=== PATIENT | female | born 1965 | race Caucasian/White ===

== ENCOUNTER → 2018-11-25 | Outpatient (CLI) | payer OTHER ==
--- NOTE | 2018-11-25 17:07 | US ---
EXAMINATION TYPE: US venous doppler duplex LE LT DATE OF EXAM: 11/25/2018 4:53 PM COMPARISON: NONE CLINICAL HISTORY: M79.652 Pain in left thigh, M79.662 Pain in left. SIDE PERFORMED: Left TECHNIQUE: The lower extremity deep venous system is examined utilizing real time linear array sonog jimbo with graded compression, doppler sonography and color-flow sonography. VESSELS IMAGED: External Iliac Vein (EIV) Common Femoral Vein Deep Femoral Vein Greater Saphenous Vein * Femoral Vein Popliteal Vein Small Saphenous Vein * Proximal Calf Veins (* superficial vessels) Left Leg: Negative for DVT IMPRESSION: No evidence of deep venous thrombosis in the left leg.
--- NOTE | 2018-11-26 08:25 | XR ---
EXAMINATION TYPE: XR femur LT DATE OF EXAM: 11/25/2018 COMPARISON: NONE HISTORY: Pain TECHNIQUE: 4 views are submitted. FINDINGS: Mild concentric narrowing of the hip joint. Femurs intact. Moderate changes of osteoarthrit is of the knee. No acute fracture or dislocation. IMPRESSION: Arthritic changes.
--- NOTE | 2018-11-26 08:27 | XR ---
EXAMINATION TYPE: XR tibia fibula LT DATE OF EXAM: 11/25/2018 COMPARISON: NONE HISTORY: Pain TECHNIQUE: Two views are submitted. FINDINGS: The osseous structures are intact. Osteoarthritic changes of the knee joint noted. No erosive changes . Soft tissue calcification noted.. IMPRESSION: 1. No acute osseous abnormality.
--- NOTE | 2018-11-26 08:27 | XR ---
EXAMINATION TYPE: XR Hip Complete LT DATE OF EXAM: 11/25/2018 COMPARISON: NONE HISTORY: Pain TECHNIQUE: 2 views submitted FINDINGS: There is no evidence of erosive change or acute fracture. There is a deformity involving the lateral margin of the superior pubic ramus which appears chronic. Concentric narrowing of the hip joint noted with hypertrophic change of the acetabulum seen with femo ral acetabular impingement. A tiny sclerotic density within the left femoral neck correlate clinicall y to bone. IMPRESSION: 1. No evidence of acute fracture or dislocation. Chronic deformity of the left superior pubic rami estrada ggest previous trauma. Correlate with bone scan as clinically warranted.
--- NOTE | 2018-11-26 08:31 | XR ---
EXAM TYPE: LUMBAR SPINE X RAY SERIES COMPARISON: NONE HISTORY: Pain TECHNIQUE: 4 views are submitted. FINDINGS: Alignment is anatomic. The pedicles are intact. The transverse processes are intact. There is no s pondylolysis or spondylolisthesis. There is multilevel moderate degenerative disc disease. Facet art hropathy lower lumbar spine. IMPRESSION: 1. Multilevel degenerative disc disease.
== END | disposition home or self-care (01) ==
LOC: RADUSWWP 16:31
PROVIDERS: ATTEND Family Medicine
DX: M51.36 Other intervertebral disc degeneration, lumbar region (principal); M95.5 Acquired deformity of pelvis; M17.12 Unilateral primary osteoarthritis, left knee; Z91.81 History of falling; M79.662 Pain in left lower leg
CPT/HCPCS: 72110; 73502

== ENCOUNTER → 2018-12-31 | Outpatient (CLI) | payer OTHER ==
--- NOTE | 2018-12-31 15:09 | NM ---
EXAMINATION TYPE: NM bone/joint limited DATE OF EXAM: 12/31/2018 COMPARISON: X-ray 11/25/2018 HISTORY: Pain TECHNIQUE: After the intravenous administration of 23.7 mCi Tc 99m MDP. Images acquired 4 hours pos t injection. Multiple views of pelvis and bilateral hip are submitted. FINDINGS: There is abnormal uptake at L5 on the left likely degenerative. There is symmetric uptake involving t he femur bilaterally. Symmetric uptake involving the pubic rami has a normal appearance. There is no evidence to suggest a acute fracture. IMPRESSION: 1. Moderate intensity uptake L5 on the left likely degenerative. 2. Pubic rami and pelvic bones have a symmetric appearance with no suspicious reduced or increased up take.
== END | disposition home or self-care (01) ==
LOC: RADNMMAIN 09:54
PROVIDERS: ATTEND Family Medicine
DX: R93.7 Abnormal findings on diagnostic imaging of other parts of musculoskeletal system (principal); M25.552 Pain in left hip
CPT/HCPCS: 78300; A9503

== ENCOUNTER → 2019-01-04 | Outpatient (CLI) | payer OTHER ==
--- NOTE | 2019-01-06 13:25 | MM ---
Reason for exam: screening (asymptomatic). Last mammogram was performed 13 years and 7 months ago. History: Patient is postmenopausal. Benign cyst aspiration of the left breast, January 29, 2004. Benign ultrasound-guided cyst aspiration of the left breast, January 29, 2004. Cyst aspiration of the left breast. Physical Findings: A clinical breast exam by your physician is recommended on an annual basis and results should be correlated with mammographic findings. MG Screening Mammo w CAD Bilateral CC and MLO view(s) were taken. Prior study comparison: May 30, 2005, bilateral screening mammogram w/CAD. January 11, 2004, bilateral special view mammogram. The breast tissue is extremely dense which could obscure a lesion on mammography. Nodularity on right and left breast. ASSESSMENT: Probably benign, BI-RAD 3 RECOMMENDATION: Follow-up diagnostic mammogram of both breasts in 6 months. (3D)
== END | disposition home or self-care (01) ==
LOC: RADMAMWWP 14:14
PROVIDERS: ATTEND Family Medicine
DX: Z12.31 Encounter for screening mammogram for malignant neoplasm of breast (principal)
CPT/HCPCS: 77067

== ENCOUNTER → 2019-08-24 | Outpatient (CLI) | payer OTHER ==
--- NOTE | 2019-08-24 08:46 | US ---
EXAMINATION TYPE: US groin RT DATE OF EXAM: 08/24/2019 COMPARISON: NONE CLINICAL HISTORY: R19.09 Other intra-abdominal and pelvic swelling, r/o hernia TECHNIQUE/FINDINGS: Targeted grayscale and color ultrasound was performed of the patient's right groi n lump/palpable abnormality. Imaging with and without Valsalva was performed. Patient could not palpate area on today's ultrasound. Right groin scanned at patients area of discomfort scanned, unable to identify a hernia at this time. IMPRESSION: The previous palpable abnormality was not palpable to the patient today during imaging. No cystic or solid masses seen within the right groin. No hernia defect seen utilizing Valsalva durin g imaging.
== END | disposition home or self-care (01) ==
LOC: RADUSWWP 07:59
PROVIDERS: ATTEND Family Medicine
DX: R19.09 Other intra-abdominal and pelvic swelling, mass and lump (principal)

== ENCOUNTER → 2019-11-09 | Outpatient (CLI) | payer OTHER ==
--- NOTE | 2019-11-10 08:19 | MM ---
Reason for exam: follow-up at short interval from prior study. Last mammogram was performed 10 months ago. History: Patient is postmenopausal. Benign cyst aspiration of the left breast, January 29, 2004. Benign ultrasound-guided cyst aspiration of the left breast, January 29, 2004. Cyst aspiration of the left breast. Physical Findings: Nurse did not find any significant physical abnormalities on exam. MG Diagnostic Mammo w CAD RONA Bilateral CC, MLO, and XCCL view(s) were taken. Prior study comparison: January 04, 2019, bilateral MG screening mammo w CAD. May 30, 2005, bilateral screening mammogram w/CAD. The breast tissue is heterogeneously dense. This may lower the sensitivity of mammography. There are two low density oval masses of the right upper inner quadrant similar to 01/04/19. Ultrasound will be performed. The previously seen left lateral asymmetry is no longer present. Benign appearing bilateral calcifications. No suspicious abnormality on the left breast. These results were verbally communicated with the patient and result sheet given to the patient on 11/09/19. ASSESSMENT: Incomplete: need additional imaging evaluation, BI-RAD 0 RECOMMENDATION: Ultrasound of the right breast. (upper inner quadrant)
--- NOTE | 2019-11-10 08:20 | USB ---
Reason for exam: additional evaluation requested from abnormal screening. History: Patient is postmenopausal. Benign cyst aspiration of the left breast, January 29, 2004. Benign ultrasound-guided cyst aspiration of the left breast, January 29, 2004. Cyst aspiration of the left breast. US Breast Limited RT Technologist: Yajaira Kulkarni Right limited breast ultrasound including focal area of concern, retroareolar and axilla demonstrates a 0.7 x 1.0 x 0.4cm oval, cystic lesion at 12 o'clock and duct ectasia at the nipple. These results were verbally communicated with the patient and result sheet given to the patient on 11/09/19. ASSESSMENT: Benign, BI-RAD 2 RECOMMENDATION: Return to routine screening mammogram schedule for both breasts.
== END | disposition home or self-care (01) ==
LOC: RADMAMWWP 13:38
PROVIDERS: ATTEND Family Medicine
DX: R92.8 Other abnormal and inconclusive findings on diagnostic imaging of breast (principal)
CPT/HCPCS: 77066

== ENCOUNTER 2020-03-30 07:03 | Day surgery (SDC) | payer OTHER ==
[2020-03-28 13:10] VITALS: BMI 25.0
[~2020-03-30 07:03] MED LIST: LACTATED RINGERS 1,000 ML IV SCH; LIDOCAINE 1% (10MG/ML) FOR IV START INTRADERMA PRN
[2020-03-30 07:37] VITALS: RESP 16; TEMP 97.4
[2020-03-30] MEDS ORDERED: LIDOCAINE 1% INJ 10MG/ML (20 ML MDV) ONE (08:08)
[2020-03-30] MEDS ORDERED: PROPOFOL 10 MG/ML 20 ML VIAL IV ONE (08:08)
--- NOTE | 2020-03-30 08:29 | P.PCN ---
Date of Procedure: 03/30/20 Procedure(s) Performed: BRIEF HISTORY: Patient is a 54-year-old pleasant white female scheduled for an elective colonoscopy as a part of screening for colorectal neoplasia. She does have family history of colon cancer in her paternal grandmother and maternal grandfather in the 60s and 70s respectively. Her last colonoscopy was 5 years ago and was normal. PROCEDURE PERFORMED: Colonoscopy. PREOPERATIVE DIAGNOSIS: Screening for colon cancer/family history of colon cancer. IV sedation per Anesthesia. PROCEDURE: After informed consent was obtained, the patient, was brought into the endoscopy unit. IV sedation was administered by Anesthesia under continuous monitoring. Digital rectal examination was normal. Initially the Olympus CF-160 flexible video colonoscope was then inserted in the rectum, gradually advanced into the cecum without any difficulty. Careful examination was performed as the scope was gradually being withdrawn. Ileocecal valve and the appendiceal orifice were visualized and appeared normal. Prep was excellent. Mucosa of the cecum, ascending colon, transverse colon, descending colon, sigmoid colon, and rectum appeared normal. Moderate sigmoid diverticulosis seen. Retroflexion was performed in the rectum and no lesions were seen. The patient tolerated the procedure well. IMPRESSION: Normal-appearing colon from rectum to cecum with no evidence of colorectal neoplasia . Moderate left-sided diverticulosis. RECOMMENDATIONS: Findings of this examination were discussed with the patient as well as a family. She was advised to have a repeat screening colonoscopy every 5 years because of the family history of colon cancer .
[2020-03-30 08:49] VITALS: BP 108/66; PULSE 63
== END 2020-03-30 09:18 | disposition home or self-care (01) ==
LOC: ORWHC2ENDO 07:03
PROVIDERS: ATTEND Internal Medicine Gastroenterology
DX: K57.30 Diverticulosis of large intestine without perforation or abscess without bleeding (principal); Z80.0 Family history of malignant neoplasm of digestive organs
CPT/HCPCS: 45378; J2001; J2704

== ENCOUNTER → 2020-05-16 | Outpatient (CLI) | payer OTHER ==
--- NOTE | 2020-05-16 17:55 | MR ---
MRI ABDOMEN WITHOUT CONTRAST, MRCP CLINICAL INDICATION: Disease of pancreas. TECHNIQUE: Multi planar, multi sequence imaging was performed. 3-D [id number] imaging was utili zed in order to study the biliary system. Maximum intensity projection images were reconstructed fro m the original data. No intravenous contrast administered. COMPARISON: [facility] CT abdomen pelvis 02/22/2020. FINDINGS: MRCP: The extrahepatic and intrahepatic bile ducts are normal in appearance. The common bile duct a t the level of the pancreatic head measures 6 mm in size. There is minimal smooth dilatation of the m ain pancreatic duct in the head and uncinate process measuring up to 5 mm, with no abrupt cut off or irregular contour. The gallbladder appears unremarkable. Abdomen: Small simple scattered hepatic cysts. 1.2 cm simple left renal cyst. The right kidney, splee n, adrenal glands, and pancreas are unremarkable on noncontrast examination. No focal abnormal restri cted diffusion of the pancreas. Colonic diverticulosis. IMPRESSIONS: Minimal smooth dilatation of the main pancreatic duct within the pancreatic head and uncinate process . No evidence of stricture, ductal irregularity, or mass effect.
== END | disposition home or self-care (01) ==
LOC: RADMRIMAIN 07:45
PROVIDERS: ATTEND Internal Medicine Gastroenterology
DX: K86.89 Other specified diseases of pancreas (principal)
CPT/HCPCS: 74181

== ENCOUNTER 2020-09-10 23:59 | Emergency (ER) | payer OTHER ==
[2020-09-11 00:09] VITALS: RESP 18
[2020-09-11 00:44] LABS: Basophils % (A) 0 %; Eosinophils # (A) 0.4 k/uL (0-0.7); Eosinophils % (A) 5 %; HCT 38.1 % (34.0-46.0); HGB 13.1 gm/dL (11.4-16.0); Lymphocytes # (A) 1.3 k/uL (1.0-4.8); Lymphocytes % (A) 16 %; MCH 31.9 pg (25.0-35.0); MCHC 34.3 g/dL (31.0-37.0); MCV 93.1 fL (80.0-100.0); Mean Platelet Volume 6.9; Monocytes # (A) 0.4 k/uL (0-1.0); Monocytes % (A) 5 %; Neutrophils # (A) 5.6 k/uL (1.3-7.7); Neutrophils % (A) 72 %; Platelet Count 205 k/uL (150-450); RBC 4.09 m/uL (3.80-5.40); RDW 12.9 % (11.5-15.5); WBC 7.8 k/uL (3.8-10.6)
[2020-09-11 00:56] LABS: Albumin 4.1 g/dL (3.5-5.0); Calcium 9.4 mg/dL (8.4-10.2); Potassium 3.9 mmol/L (3.5-5.1); Total Bilirubin 0.7 mg/dL (0.2-1.3); Total Protein 6.5 g/dL (6.3-8.2)
[2020-09-11 01:12] LABS: Appearance,Urine Clear (Clear); Bacteria,Urine Few /hpf; Bilirubin,Urine Negative (Negative); Blood,Urine Trace (Negative); Color,Urine Light Yellow; Glucose,Urine (UA) Negative (Negative); Ketones,Urine Negative (Negative); Leukocyte Esterase,Urine Moderate (Negative); Mucus,Urine Rare /hpf; Nitrite,Urine Positive (Negative); Protein,Urine Negative (Negative); RBC,Urine 1 /hpf (0-5); Specific Gravity,Urine 1.008 (1.001-1.035); Squamous Epithelial Cell,Urine 1 /hpf (0-4); Urobilinogen,Urine <2.0 mg/dL (<2.0); WBC,Urine 11 /hpf (0-5)
[2020-09-11] MEDS ORDERED: KETOROLAC 15 MG/ML 1 ML VIAL IVP STA (01:41)
[2020-09-11] MEDS ORDERED: MORPHINE SULFATE 4 MG/ML SYRINGE IVP STA (01:41)
--- NOTE | 2020-09-11 01:47 | ED ---
Abdominal Pain HPI - General Chief Complaint: Back Pain/Injury Stated Complaint: Back Pain Time Seen by Provider: 09/11/20 00:16 Source: patient, RN notes reviewed, old records reviewed Mode of arrival: ambulatory Limitations: no limitations - History of Present Illness Initial Comments: This is a 55-year-old female DF for evaluation she presents again today for evaluation regards to right flank pain right-sided abdominal pain. Patient has history of diverticulitis but has no pain in her left sided currently wears pain normally usually is. Patient otherwise has no problems. No fevers mild nausea no vomiting. She does admit to maybe some dysuria or decreased urinary output. No recent travel history or sick contacts no fevers. Patient denies cough or congestion. MD Complaint: abdominal pain, flank pain (Right-sided) -: days(s) Location: RLQ, suprapubic Radiation: suprapubic Migration to: suprapubic Severity: mild Severity scale (1-10): 3 Quality: aching Consistency: intermittent Improves With: nothing Worsens With: nothing Context: other (none) Associated Symptoms: nausea, dysuria Treatments Prior to Arrival: other (none) - Related Data Previous Rx's Medication Instructions Recorded Ciprofloxacin HCl [Cipro] 500 mg PO Q12HR #20 tablet 09/11/20 Allergies Allergy/AdvReac Type Severity Reaction Status Date / Time No Known Allergies Allergy Verified 09/11/20 00:09 Review of Systems ROS Statement: Those systems with pertinent positive or pertinent negative responses have been documented in the HPI. ROS Other: All systems not noted in ROS Statement are negative. Past Medical History Additional Past Medical History / Comment(s): diverticulosis AND DIVERTICULITIS. HAS ENLARGED PANCREAS. kidney stones History of Any Multi-Drug Resistant Organisms: None Reported Past Surgical History: Tubal Ligation Additional Past Surgical History / Comment(s): COLONOSCOPY Past Anesthesia/Blood Transfusion Reactions: No Reported Reaction Past Psychological History: No Psychological Hx Reported Smoking Status: Never smoker Past Alcohol Use History: Rare Past Drug Use History: None Reported - Past Family History Mother Family Medical History: No Reported History General Exam Limitations: no limitations General appearance: alert, in no apparent distress Head exam: Present: atraumatic, normocephalic, normal inspection Eye exam: Present: normal appearance, PERRL, EOMI. Absent: scleral icterus, conjunctival injection, periorbital swelling ENT exam: Present: normal exam, mucous membranes moist Neck exam: Present: normal inspection. Absent: tenderness, meningismus, lymp hadenopathy Respiratory exam: Present: normal lung sounds bilaterally. Absent: respiratory distress, wheezes, rales, rhonchi, stridor Cardiovascular Exam: Present: regular rate, normal rhythm, normal heart sounds. Absent: systolic murmur, diastolic murmur, rubs, gallop, clicks GI/Abdominal exam: Present: soft, normal bowel sounds. Absent: distended, tenderness, guarding, rebound, rigid Extremities exam: Present: normal inspection, full ROM, normal capillary refill. Absent: tenderness, pedal edema, joint swelling, calf tenderness Back exam: Present: normal inspection Neurological exam: Present: alert, oriented X3, CN II-XII intact Psychiatric exam: Present: normal affect, normal mood Skin exam: Present: warm, dry, intact, normal color. Absent: rash Course Vital Signs 09/11/20 09/11/20 00:07 02:45 Temperature 98.3 F 98.5 F Pulse Rate 79 72 Respiratory 18 18 Rate Blood Pressure 131/75 130/83 O2 Sat by Pulse 100 98 Oximetry - Reevaluation(s) Reevaluation #1: Medical record is reviewed Patient symptoms improved here in the ER Patient family informed of results, questions have been answered Patient feels good for discharge home is tolerating oral intake Medical Decision Making - Medical Decision Making 55 female DF for back pain. Patient states she has right flank pain, patient does have urinary tract infection, polynephritis CT is negative for kidney stone. Patient can be discharged home - Lab Data Result diagrams: 09/11/20 00:33 09/11/20 00:33 Lab Results 09/11/20 09/11/20 09/11/20 Range/Units 00:33 00:33 00:33 WBC 7.8 (3.8-10.6) k/uL RBC 4.09 (3.80-5.40) m/uL Hgb 13.1 (11.4-16.0) gm/dL Hct 38.1 (34.0-46.0) % MCV 93.1 (80.0-100.0) fL MCH 31.9 (25.0-35.0) pg MCHC 34.3 (31.0-37.0) g/dL RDW 12.9 (11.5-15.5) % Plt Count 205 (150-450) k/uL MPV 6.9 Neutrophils % 72 % Lymphocytes % 16 % Monocytes % 5 % Eosinophils % 5 % Basophils % 0 % Neutrophils # 5.6 (1.3-7.7) k/uL Lymphocytes # 1.3 (1.0-4.8) k/uL Monocytes # 0.4 (0-1.0) k/uL Eosinophils # 0.4 (0-0.7) k/uL Basophils # 0.0 (0-0.2) k/uL Sodium 137 (137-145) mmol/L Potassium 3.9 (3.5-5.1) mmol/L Chloride 106 (98-107) mmol/L Carbon Dioxide 25 (22-30) mmol/L Anion Gap 6 mmol/L BUN 24 H (7-17) mg/dL Creatinine 0.85 (0.52-1.04) mg/dL Est GFR (CKD-EPI)AfAm 89 (>60 ml/min/1.73 sqM) Est GFR (CKD-EPI)NonAf 77 (>60 ml/min/1.73 sqM) Glucose 121 H (74-99) mg/dL Calcium 9.4 (8.4-10.2) mg/dL Total Bilirubin 0.7 (0.2-1.3) mg/dL AST 26 (14-36) U/L ALT 25 (4-34) U/L Alkaline Phosphatase 66 (38-126) U/L Total Protein 6.5 (6.3-8.2) g/dL Albumin 4.1 (3.5-5.0) g/dL Urine Color Light Yellow Urine Appearance Clear (Clear) Urine pH 6.0 (5.0-8.0) Ur Specific [place] 1.008 (1.001-1.035) Urine Protein Negative (Negative) Urine Glucose (UA) Negative (Negative) Urine Ketones Negative (Negative) Urine Blood Trace H (Negative) Urine Nitrite Positive H (Negative) Urine Bilirubin Negative (Negative) Urine Urobilinogen <2.0 (<2.0) mg/dL Ur Leukocyte Esterase Moderate H (Negative) Urine RBC 1 (0-5) /hpf Urine WBC 11 H (0-5) /hpf Urine WBC Clumps Rare H (None) /hpf Ur Squamous Epith Cells 1 (0-4) /hpf Urine Bacteria Few H (None) /hpf Urine Mucus Rare H (None) /hpf - Radiology Data Radiology results: report reviewed (CT shows may be developing diverticulosis), image reviewed Disposition Clinical Impression: Acute pyelonephritis Disposition: HOME SELF-CARE Condition: Good Instructions (If sedation given, give patient instructions): Kidney Infection (ED) Prescriptions: Ciprofloxacin HCl [Cipro] 500 mg PO Q12HR #20 tablet Is patient prescribed a controlled substance at d/c from ED?: No Referrals: Maddison Martinez MD [Primary Care Provider] - 1-2 days
--- NOTE | 2020-09-11 02:27 | CT ---
EXAM: CT Abdomen and Pelvis Without Intravenous Contrast CLINICAL HISTORY: ITS.REASON CT Reason: pain TECHNIQUE: Axial computed tomography images of the abdomen and pelvis without intravenous contrast. CTDI is 9.5 mGy and DLP is 484.7 mGy-cm. This CT exam was performed using one or more of the following dose reduction techniques: automated exposure control, adjustment of the mA and/or kV according to patient size, and/or use of iterative reconstruction technique. COMPARISON: 2011 FINDINGS: Lung bases: No mass. No consolidation. ABDOMEN: Liver: Unremarkable. Gallbladder and bile ducts: Unremarkable. Pancreas: No ductal dilation. Spleen: Unremarkable. Adrenals: Unremarkable. Kidneys and ureters: No obstructing stones. No hydronephrosis. Stomach and bowel: No bowel obstruction. No bowel wall thickening. Colonic diverticulosis with minimal fat stranding in the splenic flexure. PELVIS: Appendix: No evidence of appendicitis. Bladder: No stones. Reproductive: Unremarkable. ABDOMEN and PELVIS: Intraperitoneal space: Unremarkable. Bones/joints: No acute fractures. Soft tissues: Unremarkable. Vasculature: No abdominal aortic aneurysm. Lymph nodes: No enlarged lymph nodes. IMPRESSION: Colonic diverticulosis with minimal fat stranding in the splenic flexure. May represent early/mild diverticulosis.
[2020-09-11 02:48] VITALS: BP 130/83; PULSE 72; TEMP 98.5
== END 2020-09-11 02:48 | disposition home or self-care (01) ==
LOC: EC 23:59
DX: N10 Acute pyelonephritis (principal)
CPT/HCPCS: 36415; 80053; 85025; 81001; 87086; 74176; 99284; 96365; 96375; J2270; J0696; J1885

== ENCOUNTER → 2020-11-15 | Outpatient (CLI) | payer OTHER ==
--- NOTE | 2020-11-16 09:05 | MM ---
Reason for exam: screening (asymptomatic). Last mammogram was performed 1 year ago. History: Patient is postmenopausal. Benign cyst aspiration of the left breast, January 29, 2004. Benign ultrasound-guided cyst aspiration of the left breast, January 29, 2004. Cyst aspiration of the left breast. Physical Findings: A clinical breast exam by your physician is recommended on an annual basis and results should be correlated with mammographic findings. MG Screening Mammo w CAD Bilateral CC and MLO view(s) were taken. Prior study comparison: November 09, 2019, bilateral MG diagnostic mammo w CAD RONA. January 04, 2019, bilateral MG screening mammo w CAD. The breast tissue is heterogeneously dense. This may lower the sensitivity of mammography. There is chronic nodularity bilaterally. No significant changes when compared with prior studies. ASSESSMENT: Benign, BI-RAD 2 RECOMMENDATION: Routine screening mammogram of both breasts in 1 year.
== END | disposition home or self-care (01) ==
LOC: RADMAMWWP 12:44
PROVIDERS: ATTEND Family Medicine
DX: Z12.31 Encounter for screening mammogram for malignant neoplasm of breast (principal); Z98.890 Other specified postprocedural states
CPT/HCPCS: 77067

== ENCOUNTER → 2020-11-21 | Outpatient (CLI) | payer OTHER ==
--- NOTE | 2020-11-21 15:14 | XR ---
EXAMINATION TYPE: XR cervical spine comp DATE OF EXAM: 11/21/2020 COMPARISON: NONE HISTORY: Pain TECHNIQUE: Four views are submitted. FINDINGS: The odontoid is intact. There are no compression deformities. The prevertebral soft tissue structur es are within normal limits. Posterior cervical spondylosis C4-5 and C5-C6 and to a lesser extent C6 -C7 with moderate to severe degenerative disc disease and hypertrophic spurring anteriorly. IMPRESSION: 1. Multilevel moderate to severe degenerative disc disease and hypertrophic spurring..
== END | disposition home or self-care (01) ==
LOC: RADXRMAIN 14:48
PROVIDERS: ATTEND Family Medicine
DX: M50.30 Other cervical disc degeneration, unspecified cervical region (principal)
CPT/HCPCS: 72050

== ENCOUNTER → 2020-11-30 | Outpatient (CLI) | payer OTHER ==
--- NOTE | 2020-12-03 03:57 | US ---
EXAMINATION TYPE: US pelvis complete transvag DATE OF EXAM: 11/30/2020 COMPARISON: NONE CLINICAL HISTORY: 55-year-old female URINARY URGENCY, R39.15. TECHNIQUE: Transvaginal (TV) and Transabdominal (TA) . Transabdominal sonographic images of the pel vis were acquired. Transvaginal sonographic images were medically necessary to better assess the fol lowing anatomy: OVARIES Date of LMP: post menopausal, no HRT. FINDINGS: EXAM MEASUREMENTS: Uterus: 7.7 x 3.5 x 4.6 cm Endometrial Stripe: 0.3 cm Right Ovary: 2.2 x 1.7 x 1.7 cm for a volume of 2.2 mL. Left Ovary: 1.6 x 1.7 x 1.7 cm for volume of 2.4 mL. 1. Uterus: Anteverted and otherwise wnl. Tiny 3 mm cervical nabothian cyst. 2. Endometrium: wnl 3. Right Ovary: wnl 4. Left Ovary: wnl 5. Bilateral Adnexa: wnl 6. Posterior cul-de-sac: no free fluid IMPRESSION: Thin endometrial stripe at 3 mm and small postmenopausal ovaries. No pelvic free fluid.
--- NOTE | 2020-12-03 04:02 | US ---
EXAMINATION TYPE: US abdomen complete DATE OF EXAM: 11/30/2020 COMPARISON: CT 02/22/2020 CLINICAL HISTORY: 55-year-old female R39.15 Urine urgency, R32 Urinary incontinence. TECHNIQUE: Multiple sonographic images of the abdomen are obtained. FINDINGS: EXAM MEASUREMENTS: Liver Length: 13.8 cm Gallbladder Wall: 0.3 cm CBD: 6.4 mm Spleen: 10.6 cm Right Kidney: 10.9 x 3.7 x 4.2 cm Left Kidney: 11.6 x 5.1 x 4.9 cm Pancreas: visualized portions wnl. Suboptimal visualization of the pancreatic tail due to shadowing from bowel gas. Portions of the pancreatic body are also obscured. Liver: wnl Gallbladder: No stones seen Evidence for sonographic Acosta's sign: No CBD: Borderline to mildly dilated. Spleen: wnl Kidneys: No hydronephrosis. Upper IVC: wnl Abd Aorta: Measures up to 2.2 cm, within normal limits. IMPRESSION: 1. The bile duct is borderline to mildly dilated at 6.4 mm. This may be acceptable given patient's ag e. Correlate for normal alkaline phosphatase and bilirubin levels. 2. Limited visualization of portions of the pancreas. No gallstones or other specific sonographic abn ormality of the abdomen.
== END | disposition home or self-care (01) ==
LOC: RADUSWWP 14:52
PROVIDERS: ATTEND Family Medicine
DX: R39.15 Urgency of urination (principal); R32 Unspecified urinary incontinence; K83.8 Other specified diseases of biliary tract; Z78.0 Asymptomatic menopausal state
CPT/HCPCS: 76700; 76830; 76856

== ENCOUNTER → 2021-02-17 | Outpatient (CLI) | payer OTHER ==
--- NOTE | 2021-02-17 15:38 | MR ---
EXAMINATION TYPE: MR cervical spine wo con DATE OF EXAM: 02/17/2021 COMPARISON: Plain film 2020 HISTORY: NO prior, DDD, spasms, arthritis, no trauma TECHNIQUE: Multiplanar, multisequence images of the cervical spine were acquired. C2-C3: No evidence for degenerative disc disease. No disc bulge/herniation or protrusion. No Canal stenosis. Foramina are patent bilaterally. C3-C4: No evidence for degenerative disc disease. No disc bulge/herniation or protrusion. No Canal stenosis. Foramina are patent bilaterally. C4-C5: Posterior extension endplate disc complex causes mild anterior mass effect on the thecal sac. Uncovertebral joint hypertrophy results in bilateral foraminal encroachment. C5-C6: Bilateral foraminal encroachment is present due to uncovertebral joint hypertrophy greater on the right than on the left, minimal posterior disc bulge effaces the anterior thecal sac. C6-C7: No evidence for degenerative disc disease. No disc bulge/herniation or protrusion. No Canal stenosis. Foramina are patent bilaterally. C7-T1: No evidence for degenerative disc disease. No disc bulge/herniation or protrusion. No Canal stenosis. Foramina are patent bilaterally. Cervical segments are intact. There is normal alignment. Cervical spinal cord is of normal signal. Craniovertebral junction relationships are within normal limits. There is no significant spinal trey nosis. There is multilevel spondylosis with endplate discogenic signal change, loss of disc height si gnal especially at C4-5, C5-6. There is multilevel facet arthropathy. IMPRESSION: Degenerative disc disease and facet arthropathy, foraminal encroachment
== END | disposition home or self-care (01) ==
LOC: RADMRIMAIN 07:58
PROVIDERS: ATTEND Family Medicine
DX: M50.30 Other cervical disc degeneration, unspecified cervical region (principal); M47.892 Other spondylosis, cervical region; M50.90 Cervical disc disorder, unspecified, unspecified cervical region
CPT/HCPCS: 72141

== ENCOUNTER 2022-02-01 12:07 | Emergency (ER) | payer OTHER ==
[2022-02-01] MEDS ORDERED: KETOROLAC 15 MG/ML 1 ML VIAL IVP STA (13:08)
[2022-02-01] MEDS ORDERED: SODIUM CHLORIDE 0.9% 1,000 ML IV STA (13:08)
--- NOTE | 2022-02-01 13:13 | ED ---
Abdominal Pain HPI - General Chief Complaint: Abdominal Pain Stated Complaint: Abdominal pain Time Seen by Provider: 02/01/22 12:56 Source: patient, RN notes reviewed Mode of arrival: ambulatory Limitations: no limitations - History of Present Illness Initial Comments: This is a 56-year-old female who presents to the emergency department for epigastric pain. Patient states that for the last 5 days, she has had random episodes throughout the day where she gets a feeling of cramping/contractions in the upper abdomen. States that this feels like it is coming from the back to the front of the abdomen. Symptoms occur in waves. States that it is worse after she drinks something cold or eats. Denies any associated fevers, nausea, or vomiting. She does not believe that she has had anything like this in the past. Denies any fevers, chills, sore throat, cough, dyspnea, chest pain, palpitations, nausea, vomiting, diarrhea, back pain, or headaches. MD Complaint: abdominal pain Onset/Timin -: days(s) Location: RUQ, epigastric Quality: cramping Consistency: colicky Worsens With: eating - Related Data Previous Rx's Medication Instructions Recorded Ciprofloxacin HCl [Cipro] 500 mg PO Q12HR #20 tablet 09/11/20 Hyoscyamine Sulfate [Levsin] 0.125 mg PO Q4H PRN #30 tab 02/01/22 Omeprazole 20 mg PO QAM 14 Days #14 cap 02/01/22 Allergies Allergy/AdvReac Type Severity Reaction Status Date / Time No Known Allergies Allergy Verified 09/11/20 00:09 Review of Systems ROS Statement: Those systems with pertinent positive or pertinent negative responses have been documented in the HPI. ROS Other: All systems not noted in ROS Statement are negative. Past Medical History Additional Past Medical History / Comment(s): diverticulosis AND DIVERTICULITIS. HAS ENLARGED PANCREAS. kidney stones History of Any Multi-Drug Resistant Organisms: None Reported Past Surgical History: Tubal Ligation Additional Past Surgical History / Comment(s): COLONOSCOPY Past Anesthesia/Blood Transfusion Reactions: No Reported Reaction Past Psychological History: No Psychological Hx Reported Smoking Status: Never smoker Past Alcohol Use History: Rare Past Drug Use History: None Reported - Past Family History Mother Family Medical History: No Reported History General Exam Limitations: no limitations General appearance: alert, in distress Head exam: Present: atraumatic, normocephalic, normal inspection Respiratory exam: Present: normal lung sounds bilaterally. Absent: respiratory distress, wheezes, rales, rhonchi, stridor Cardiovascular Exam: Present: regular rate, normal rhythm, normal heart sounds. Absent: systolic murmur, diastolic murmur, rubs, gallop, clicks GI/Abdominal exam: Present: soft, tenderness (RUQ), normal bowel sounds. Ab sent: distended, guarding, rebound, rigid Neurological exam: Present: alert, oriented X3, CN II-XII intact Psychiatric exam: Present: normal affect, normal mood Skin exam: Present: warm, dry, intact, normal color. Absent: rash Course Vital Signs 02/01/22 02/01/22 12:14 16:59 Temperature 97.9 F 98.2 F Pulse Rate 81 78 Respiratory 16 18 Rate Blood Pressure 157/76 150/70 O2 Sat by Pulse 100 78 L Oximetry Medical Decision Making - Medical Decision Making This is a 56-year-old female who presents to the emergency department with abdominal pain. Lab work and ultrasound of the gallbladder were obtained. Lab work was nonactionable. The gallbladder ultrasound revealed no significant acute changes. Discussed with the patient that at this time no cause of her symptoms has been identified. Patient requests further workup with a computed tomography scan. Discussed the risks and benefits of a CT scan and the radiation exposure, and that her workup at this time does not suggest an acute infectious process. Patient wishes to proceed. CT the abdomen and pelvis was obtained, this again revealed no significant acute changes to explain her symptoms. It did note a possible developing colitis, however this is not in the area where the patient's pain is located, and she states that this is different from episodes of diverticulitis she has had in the past. We did try a GI cocktail, and patient states that this did calm down her symptoms. Discussed that this may be in part related to a gastric ulcer. Prescription for Levsin and omeprazole provided. Instructed her to follow-up with her primary care provider this week for reevaluation of symptoms. Return precautions reviewed in depth, the patient is instructed to return to the emergency department with any new, worsening, or concerning symptoms. Patient verbalized understanding. This case was discussed in detail with the attending ED physician. Presentation, findings, and treatment plan discussed in detail as well. - Lab Data Result diagrams: 02/01/22 13:22 02/01/22 13:22 Lab Results 02/01/22 02/01/22 02/01/22 Range/Units 13: 13: 13:22 WBC 8.1 (3.8-10.6) k/uL RBC 4.49 (3.80-5.40) m/uL Hgb 14.2 (11.4-16.0) gm/dL Hct 43.2 (34.0-46.0) % MCV 96.1 (80.0-100.0) fL MCH 31.6 (25.0-35.0) pg MCHC 32.9 (31.0-37.0) g/dL RDW 12.6 (11.5-15.5) % Plt Count 240 (150-450) k/uL MPV 7.4 Neutrophils % 73 % Lymphocytes % 17 % Monocytes % 6 % Eosinophils % 3 % Basophils % 1 % Neutrophils # 5.9 (1.3-7.7) k/uL Lymphocytes # 1.4 (1.0-4.8) k/uL Monocytes # 0.5 (0-1.0) k/uL Eosinophils # 0.2 (0-0.7) k/uL Basophils # 0.1 (0-0.2) k/uL Sodium 138 (137-145) mmol/L Potassium 4.1 (3.5-5.1) mmol/L Chloride 105 (98-107) mmol/L Carbon Dioxide 27 (22-30) mmol/L Anion Gap 6 mmol/L BUN 19 H (7-17) mg/dL Creatinine 0.85 (0.52-1.04) mg/dL Est GFR (CKD-EPI)AfAm 88 (>60 ml/min/1.73 sqM) Est GFR (CKD-EPI)NonAf 77 (>60 ml/min/1.73 sqM) Glucose 97 (74-99) mg/dL Calcium 8.8 (8.4-10.2) mg/dL Total Bilirubin 0.7 (0.2-1.3) mg/dL AST 16 (14-36) U/L ALT 15 (4-34) U/L Alkaline Phosphatase 60 (38-126) U/L Troponin I (0.000-0.034) ng/mL Total Protein 6.2 L (6.3-8.2) g/dL Albumin 4.0 (3.5-5.0) g/dL Amylase 50 (30-110) U/L Lipase 27 (23-300) U/L Urine Color Colorless Urine Appearance Clear (Clear) Urine pH 7.0 (5.0-8.0) Ur Specific [place] 1.005 (1.001-1.035) Urine Protein Negative (Negative) Urine Glucose (UA) Negative (Negative) Urine Ketones Negative (Negative) Urine Blood Negative (Negative) Urine Nitrite Negative (Negative) Urine Bilirubin Negative (Negative) Urine Urobilinogen <2.0 (<2.0) mg/dL Ur Leukocyte Esterase Small H (Negative) Urine RBC <1 (0-5) /hpf Urine WBC 8 H (0-5) /hpf Ur Squamous Epith Cells 1 (0-4) /hpf Urine Bacteria Rare H (None) /hpf 02/01/22 Range/Units 13:22 WBC (3.8-10.6) k/uL RBC (3.80-5.40) m/uL Hgb (11.4-16.0) gm/dL Hct (34.0-46.0) % MCV (80.0-100.0) fL MCH (25.0-35.0) pg MCHC (31.0-37.0) g/dL RDW (11.5-15.5) % Plt Count (150-450) k/uL MPV Neutrophils % % Lymphocytes % % Monocytes % % Eosinophils % % Basophils % % Neutrophils # (1.3-7.7) k/uL Lymphocytes # (1.0-4.8) k/uL Monocytes # (0-1.0) k/uL Eosinophils # (0-0.7) k/uL Basophils # (0-0.2) k/uL Sodium (137-145) mmol/L Potassium (3.5-5.1) mmol/L Chloride (98-107) mmol/L Carbon Dioxide (22-30) mmol/L Anion Gap mmol/L BUN (7-17) mg/dL Creatinine (0.52-1.04) mg/dL Est GFR (CKD-EPI)AfAm (>60 ml/min/1.73 sqM) Est GFR (CKD-EPI)NonAf (>60 ml/min/1.73 sqM) Glucose (74-99) mg/dL Calcium (8.4-10.2) mg/dL Total Bilirubin (0.2-1.3) mg/dL AST (14-36) U/L ALT (4-34) U/L Alkaline Phosphatase (38-126) U/L Troponin I <0.012 (0.000-0.034) ng/mL Total Protein (6.3-8.2) g/dL Albumin (3.5-5.0) g/dL Amylase (30-110) U/L Lipase (23-300) U/L Urine Color Urine Appearance (Clear) Urine pH (5.0-8.0) Ur Specific [place] (1.001-1.035) Urine Protein (Negative) Urine Glucose (UA) (Negative) Urine Ketones (Negative) Urine Blood (Negative) Urine Nitrite (Negative) Urine Bilirubin (Negative) Urine Urobilinogen (<2.0) mg/dL Ur Leukocyte Esterase (Negative) Urine RBC (0-5) /hpf Urine WBC (0-5) /hpf Ur Squamous Epith Cells (0-4) /hpf Urine Bacteria (None) /hpf - EKG Data EKG Comments: Sinus rhythm. Ventricular rate 61 bpm, W[place] interval 148 ms, QRS duration 81 ms, QTC 396 ms. - Radiology Data Radiology results: report reviewed, image reviewed Disposition Clinical Impression: Peptic ulcer Disposition: HOME SELF-CARE Instructions (If sedation given, give patient instructions): Peptic Ulcer (ED), Gastritis (ED) Additional Instructions: Return to the emergency department with any new, worsening, or concerning symptoms. Take the Levsin up to every 4 hours as needed for abdominal spasms. Take the Omeprazole 30 minutes before eating any meals daily for 2 weeks. Try taking [id number] antacids as well such as TUMS or Mylanta. Follow up with your primary care provider in 1-2 days. Prescriptions: Hyoscyamine Sulfate [Levsin] 0.125 mg PO Q4H PRN #30 tab PRN Reason: Spasms Omeprazole 20 mg PO QAM 14 Days #14 cap Is patient prescribed a controlled substance at d/c from ED?: No Referrals: Maddison Martinez MD [Primary Care Provider] - 1-2 days
[2022-02-01 13:42] LABS: Basophils # (A) 0.1 k/uL (0-0.2); Basophils % (A) 1 %; Eosinophils # (A) 0.2 k/uL (0-0.7); Eosinophils % (A) 3 %; HCT 43.2 % (34.0-46.0); HGB 14.2 gm/dL (11.4-16.0); Lymphocytes # (A) 1.4 k/uL (1.0-4.8); Lymphocytes % (A) 17 %; MCH 31.6 pg (25.0-35.0); MCHC 32.9 g/dL (31.0-37.0); MCV 96.1 fL (80.0-100.0); Mean Platelet Volume 7.4; Monocytes # (A) 0.5 k/uL (0-1.0); Monocytes % (A) 6 %; Neutrophils # (A) 5.9 k/uL (1.3-7.7); Neutrophils % (A) 73 %; Platelet Count 240 k/uL (150-450); RBC 4.49 m/uL (3.80-5.40); RDW 12.6 % (11.5-15.5); WBC 8.1 k/uL (3.8-10.6)
[2022-02-01 13:46] LABS: Calcium 8.8 mg/dL (8.4-10.2); Potassium 4.1 mmol/L (3.5-5.1); Total Bilirubin 0.7 mg/dL (0.2-1.3); Total Protein 6.2 g/dL (6.3-8.2)
[2022-02-01 13:54] LABS: Appearance,Urine Clear (Clear); Bacteria,Urine Rare /hpf; Bilirubin,Urine Negative (Negative); Blood,Urine Negative (Negative); Color,Urine Colorless; Glucose,Urine (UA) Negative (Negative); Ketones,Urine Negative (Negative); Leukocyte Esterase,Urine Small (Negative); Nitrite,Urine Negative (Negative); Protein,Urine Negative (Negative); RBC,Urine <1 /hpf (0-5); Specific Gravity,Urine 1.005 (1.001-1.035); Squamous Epithelial Cell,Urine 1 /hpf (0-4); Urobilinogen,Urine <2.0 mg/dL (<2.0); WBC,Urine 8 /hpf (0-5)
--- NOTE | 2022-02-01 14:06 | US ---
EXAMINATION TYPE: US gallbladder DATE OF EXAM: 02/01/2022 COMPARISON: 11/30/2020 CLINICAL HISTORY: 56-year-old female Epigastric and RUQ pain. Intermittent abdomen pain x couple days , patient not NPO TECHNIQUE: Multiple sonographic images of the right upper quadrant are obtained. FINDINGS: EXAM MEASUREMENTS: Liver Length: 15.2 cm Gallbladder Wall: 0.2 cm CBD: 6.7 mm (6.4 mm, previously) Right Kidney: 11.1 x 4.9 x 5.0 cm Pancreas: visualized portions wnl, duct measures upper limits of normal at 0 2 mm. The pancreatic ta il is limited by overlying midline bowel gas Liver: 1.0cm cyst adjacent to gallbladder Gallbladder: No abnormal distention, wall thickening, pericholecystic fluid, or shadowing calculi. Evidence for sonographic Acosta's sign: no CBD: Borderline dilated, not significantly changed. Right Kidney: wnl IMPRESSION: No gallstones. The bile duct is borderline dilated at 6.7 mm but not significantly changed from 2020. Likely chronic in this patient.
--- NOTE | 2022-02-01 15:22 | CT ---
EXAMINATION TYPE: CT abdomen pelvis w con CT DLP: 979.6 mGycm, Automated exposure control for dose reduction was used. DATE OF EXAM: 02/01/2022 2:44 PM COMPARISON: Gallbladder ultrasound 02/01/2022, CT abdomen pelvis 09/11/2020 CLINICAL INDICATION:Female, 56 years old with history of Epigastric pain; Epigastric pain. Hx enlarge d pancreas, diverticulitis/osis TECHNIQUE: Axial CT of the abdomen and pelvis. Sagittal and coronal reformats were created on a [employer] workstation. Contrast used:100 mL of Isovue 300 with IV Contrast, Oral contrast used: without Oral Contrast FINDINGS: LOWER CHEST: Unremarkable ABDOMEN LIVER: Multiple subcentimeter foci of hypoattenuation which are too small adequately characterize, st atistically representing small cyst. Noncirrhotic morphology. GALLBLADDER AND BILE DUCTS: Unremarkable. PANCREAS: Normal appearance of the parenchyma. The main pancreatic duct is fusiformly prominent at 4 mm in width (series 202, image 32). SPLEEN: Unremarkable. ADRENAL GLANDS: Unremarkable. KIDNEYS AND URETERS: No evidence of hydronephrosis or renal calculus. The ureters are unremarkable. PELVIS BLADDER: Unremarkable REPRODUCTIVE: Unremarkable. ABDOMEN & PELVIS STOMACH AND BOWEL: Stomach and duodenum are unremarkable. Segment of colonic wall thickening with sub tle pericolonic/peridiverticular fat stranding near the splenic flexure (series 202, image 52). No ev idence for wall fluid collections or pneumoperitoneum. No evidence of bowel obstruction. PERITONEUM: No evidence of pneumoperitoneum or free fluid. VASCULATURE: No evidence of aortic aneurysm. Pelvic phleboliths are noted. Scattered calcified athero sclerosis of the abdominal aorta and distal branches. MUSCULOSKELETAL: No acute osseous abnormalities. Mild disc degeneration changes are present throughou t the thoracolumbar spine. LYMPH NODES: No gross evidence for lymphadenopathy. SOFT TISSUE/ABDOMINAL WALL: Unremarkable IMPRESSION: 1. Chronic diverticulosis with mild inflammatory changes of the distal transverse/descending colon wh ich may represent early colitis. No acute complications seen. 2. Minimally prominent main pancreatic duct which is nonspecific and can be seen in the sequelae of p rior pancreatitis.
[2022-02-01] MEDS ORDERED: MAG HYDROX/AL HYDROX/SIMETH 30 ML, HYOSCYAMINE ELIXIR 10 ML PO STA ×2 (15:33)
[2022-02-01 17:00] VITALS: BP 150/70; PULSE 78; RESP 18; TEMP 98.2
== END 2022-02-01 16:59 | disposition home or self-care (01) ==
LOC: EC 12:07
DX: K27.9 Peptic ulcer, site unspecified, unspecified as acute or chronic, without hemorrhage or perforation (principal)
CPT/HCPCS: 36415; 93005; 80053; 82150; 83690; 84484; 85025; 81001; 76705; 74177; 99284; 96374; 96361; J1885; Q9967

== ENCOUNTER 2022-05-19 10:32 | Emergency (ER) | payer OTHER ==
[2022-05-19 10:55] VITALS: BP 129/76; PULSE 98; RESP 18; TEMP 98
--- NOTE | 2022-05-19 11:57 | ED ---
URI HPI - General Chief Complaint: Upper Respiratory Infection Stated Complaint: ear pain, dizziness Time Seen by Provider: 05/19/22 11:26 Source: patient, RN notes reviewed Mode of arrival: ambulatory Limitations: no limitations - History of Present Illness Initial Comments: Patient is a 56 year old female presenting to the ER with a chief complaint of ear pain/sweats. Patient states this started a couple of days ago with chills while at work. She also endorses sore throat with dry and productive cough. Patient denies fevers, nightsweats, tinnitus, congestion, chest pain/palpitations, shortness of breath, abdominal pain, diarrhea, constipation or dysuria. - Related Data Previous Rx's Medication Instructions Recorded Ciprofloxacin HCl [Cipro] 500 mg PO Q12HR #20 tablet 09/11/20 Hyoscyamine Sulfate [Levsin] 0.125 mg PO Q4H PRN #30 tab 02/01/22 Omeprazole 20 mg PO QAM 14 Days #14 cap 02/01/22 Pseudoephedrine 12Hr [Sudafed 12Hr] 120 mg PO Q12H #20 tab 05/19/22 Allergies Allergy/AdvReac Type Severity Reaction Status Date / Time No Known Allergies Allergy Verified 05/19/22 10:55 Review of Systems ROS Statement: Those systems with pertinent positive or pertinent negative responses have been documented in the HPI. ROS Other: All systems not noted in ROS Statement are negative. Past Medical History Additional Past Medical History / Comment(s): diverticulosis AND DIVERTICULITIS. HAS ENLARGED PANCREAS. kidney stones History of Any Multi-Drug Resistant Organisms: None Reported Past Surgical History: Tubal Ligation Additional Past Surgical History / Comment(s): COLONOSCOPY Past Anesthesia/Blood Transfusion Reactions: No Reported Reaction Past Psychological History: No Psychological Hx Reported Smoking Status: Never smoker Past Alcohol Use History: Rare Past Drug Use History: None Reported - Past Family History Mother Family Medical History: No Reported History General Exam Limitations: no limitations General appearance: alert, in no apparent distress Head exam: Present: atraumatic, normocephalic, normal inspection Eye exam: Present: normal appearance, PERRL, EOMI. Absent: scleral icterus, conjunctival injection, periorbital swelling ENT exam: Present: normal exam, mucous membranes moist, other (erythematous pharynx) Neck exam: Present: normal inspection. Absent: tenderness, meningismus, lymphadenopathy Respiratory exam: Present: normal lung sounds bilaterally. Absent: respiratory distress, wheezes, rales, rhonchi, stridor Cardiovascular Exam: Present: regular rate, normal rhythm, normal heart sounds. Absent: systolic murmur, diastolic murmur, rubs, gallop, clicks GI/Abdominal exam: Present: soft, normal bowel sounds. Absent: distended, tenderness, guarding, rebound, rigid Extremities exam: Present: normal inspection, full ROM, normal capillary refill. Absent: tenderness, pedal edema, joint swelling, calf tenderness Back exam: Present: normal inspection Neurological exam: Present: alert, oriented X3, CN II-XII intact Psychiatric exam: Present: normal affect, normal mood Skin exam: Present: warm, dry, intact, normal color. Absent: rash Course Vital Signs 05/19/22 10:52 Temperature 98 F Pulse Rate 98 Respiratory 18 Rate Blood Pressure 129/76 O2 Sat by Pulse 100 Oximetry Medical Decision Making - Medical Decision Making Patient is 56 year old femlae presenting to the ER with a cheif complaint of ear pain and chills. Influenza A & B and COVID tests were negative. Patient we treated for upper extremity infection. Patient stable otherwise return parameters were discussed. - Lab Data Lab Results 05/19/22 05/19/22 Range/Units 12:01 12:01 Coronavirus (PCR) Not Detected (Not Detectd) Influenza Type A RNA Not Detected (Not Detectd) Influenza Type B (PCR) Not Detected (Not Detectd) Disposition Clinical Impression: Acute upper respiratory infection Disposition: HOME SELF-CARE Condition: Stable Instructions (If sedation given, give patient instructions): Upper Respiratory Infection (ED) Additional Instructions: Please return to the Emergency Department if symptoms worsen or any other concerns. Prescriptions: Pseudoephedrine 12Hr [Sudafed 12Hr] 120 mg PO Q12H #20 tab Is patient prescribed a controlled substance at d/c from ED?: No Referrals: Maddison Martinez MD [Primary Care Provider] - 1-2 days Time of Disposition: 13:08
== END 2022-05-19 13:18 | disposition home or self-care (01) ==
LOC: EC 10:32
DX: J06.9 Acute upper respiratory infection, unspecified (principal); Z20.822 Contact with and (suspected) exposure to COVID-19
CPT/HCPCS: 87502; 87635; 99284

== ENCOUNTER 2022-11-08 22:48 | Emergency (ER) | payer OTHER ==
[2022-11-08 23:11] VITALS: TEMP 98
[2022-11-09 01:21] LABS: Basophils % (A) 0 %; Eosinophils % (A) 1 %; HCT 42.3 % (34.0-46.0); HGB 14.7 gm/dL (11.4-16.0); Lymphocytes # (A) 0.8 k/uL (1.0-4.8); Lymphocytes % (A) 9 %; MCH 32.2 pg (25.0-35.0); MCHC 34.7 g/dL (31.0-37.0); MCV 92.7 fL (80.0-100.0); Mean Platelet Volume 7.5; Monocytes # (A) 0.3 k/uL (0-1.0); Monocytes % (A) 4 %; Neutrophils % (A) 85 %; Platelet Count 230 k/uL (150-450); RBC 4.56 m/uL (3.80-5.40); WBC 8.2 k/uL (3.8-10.6)
[2022-11-09] MEDS ORDERED: SODIUM CHLORIDE 0.9% 1,000 ML IV ONE (01:24)
[2022-11-09] MEDS ORDERED: ONDANSETRON 4 MG/2 ML VIAL IVP STA (01:25)
[2022-11-09] MEDS ORDERED: MORPHINE SULFATE 4 MG/ML SYRINGE IVP STA (01:25)
[2022-11-09 01:35] LABS: Partial Thromboplastin Time 23.9 sec (22.0-30.0); Prothrombin Time 10.3 sec (9.0-12.0)
[2022-11-09 01:37] LABS: ALT 20 U/L (4-34); AST 22 U/L (14-36); African American GFR (CKD) >90 (>60 ml/min/1.73 sqM); Alkaline Phosphatase 66 U/L (38-126); Anion Gap 14 mmol/L; Blood Urea Nitrogen 15 mg/dL (7-17); Carbon Dioxide 23 mmol/L (22-30); Chloride 104 mmol/L (98-107); Glucose 139 mg/dL (74-99); Lipase 34 U/L (23-300); Non-African American GFR(CKD) >90 (>60 ml/min/1.73 sqM); Sodium 141 mmol/L (137-145); Total Bilirubin 1.2 mg/dL (0.2-1.3); Total Protein 7.5 g/dL (6.3-8.2)
--- NOTE | 2022-11-09 02:35 | CT ---
EXAM: CT Abdomen and Pelvis With Intravenous Contrast CLINICAL HISTORY: ITS.REASON CT Reason: abd pain, vomiting TECHNIQUE: Axial computed tomography images of the abdomen and pelvis with intravenous contrast. CTDI is 19 mGy and DLP is 926.2 mGy-cm. This CT exam was performed using one or more of the following dose reduction techniques: automated exposure control, adjustment of the mA and/or kV according to patient size, and/or use of iterative reconstruction technique. COMPARISON: 02/01/2022. FINDINGS: Lung bases: Scarring and subsegmental atelectasis noted at the lung bases. Heart: Heart is normal in size. Mediastinum: Possible mild distal esophagitis. ABDOMEN: Liver: Fatty liver. Probable simple hepatic cysts. Gallbladder and bile ducts: See below. Pancreas: See below. Spleen: Spleen enhances uniformly. Adrenals: The adrenal glands, the head, body, tail of the pancreas and the gallbladder is unremarkable. Kidneys and ureters: 1 cm simple cyst midpole region of the left kidney. No follow up is advised. No renal calculus or hydronephrosis. Stomach and bowel: Findings suggestive of enterocolitis. Moderate quantity of ingested material in the stomach. Flow is noted within the colon. Diverticulosis. No bowel obstruction. PELVIS: Appendix: Appendix is seen on coronal image 31 and is unremarkable. Bladder: Bladder is underdistended. Reproductive: Unremarkable as visualized. ABDOMEN and PELVIS: Intraperitoneal space: Unremarkable. No free air. No significant fluid collection. Bones/joints: Bone islands about the proximal left femur. No acute fracture. No dislocation. No spondylolysis. Soft tissues: Ischiorectal fat is clean. Vasculature: Portal vein is patent. Flow is noted within the celiac, SMA, the renal arteries, and DIVINE. Atherosclerotic disease of the abdominal aorta without change in caliber. No abdominal aortic aneurysm. Lymph nodes: Unremarkable. No enlarged lymph nodes. IMPRESSION: 1. Consider enterocolitis. 2. The appendix is unremarkable. 3. Possible mild distal esophagitis. 4. Fatty liver. 5. The gallbladder is unremarkable. 6. No hydronephrosis.
[2022-11-09 03:56] LABS: Appearance,Urine Clear (Clear); Bilirubin,Urine Negative (Negative); Blood,Urine Trace (Negative); Color,Urine Light Yellow; Glucose,Urine (UA) Negative (Negative); Ketones,Urine 2+ (Negative); Leukocyte Esterase,Urine Negative (Negative); Nitrite,Urine Negative (Negative); Protein,Urine Negative (Negative); RBC,Urine 8 /hpf (0-5); Specific Gravity,Urine >1.050 (1.001-1.035); Squamous Epithelial Cell,Urine 1 /hpf (0-4); Urobilinogen,Urine <2.0 mg/dL (<2.0); WBC,Urine 1 /hpf (0-5)
[2022-11-09] MEDS ORDERED: METOCLOPRAMIDE 5 MG/ML 2 ML VIAL IVP STA (04:14)
[2022-11-09] MEDS ORDERED: diphenhydrAMINE 50 MG/ML 1 ML VIAL IVP STA (04:15)
--- NOTE | 2022-11-09 04:16 | ED ---
Abdominal Pain HPI - General Chief Complaint: Abdominal Pain Stated Complaint: vomiting Time Seen by Provider: 11/08/22 23:10 Source: patient Mode of arrival: ambulatory Limitations: no limitations - History of Present Illness Initial Comments: 57-year-old female with past medical history of diverticulitis who presents to the emergency department reporting nausea, vomiting and lower abdominal pain. States that her symptoms started earlier today. Denies any provocative factors. No sick contacts with similar symptoms. Does have suprapubic cramping. She did not take any medications at home for her symptoms. Reports that she has been unable to hold down any food or drink and this is what prompted her ER visit. No fevers. No hematemesis. No black or bloody stools. No changes in her urination. No other alleviating, precipitating or modifying factors - Related Data Previous Rx's Medication Instructions Recorded Ciprofloxacin HCl [Cipro] 500 mg PO Q12HR #20 tablet 09/11/20 Hyoscyamine Sulfate [Levsin] 0.125 mg PO Q4H PRN #30 tab 02/01/22 Omeprazole 20 mg PO QAM 14 Days #14 cap 02/01/22 Pseudoephedrine 12Hr [Sudafed 12Hr] 120 mg PO Q12H #20 tab 05/19/22 Ondansetron Odt [Zofran Odt] 4 mg PO Q8HR PRN #15 tab 11/09/22 Allergies Allergy/AdvReac Type Severity Reaction Status Date / Time No Known Allergies Allergy Verified 11/08/22 23:11 Review of Systems ROS Statement: Those systems with pertinent positive or pertinent negative responses have been documented in the HPI. ROS Other: All systems not noted in ROS Statement are negative. Past Medical History Additional Past Medical History / Comment(s): diverticulosis AND DIVERTICULITIS. HAS ENLARGED PANCREAS. kidney stones History of Any Multi-Drug Resistant Organisms: None Reported Past Surgical History: Tubal Ligation Additional Past Surgical History / Comment(s): COLONOSCOPY Past Anesthesia/Blood Transfusion Reactions: No Reported Reaction Past Psychological History: No Psychological Hx Reported Smoking Status: Never smoker Past Alcohol Use History: Rare Past Drug Use History: Marijuana - Past Family History Mother Family Medical History: No Reported History General Exam Limitations: no limitations General appearance: alert, in no apparent distress Head exam: Present: atraumatic, normocephalic, normal inspection Eye exam: Present: normal appearance, PERRL, EOMI. Absent: scleral icterus, conjunctival injection, periorbital swelling ENT exam: Present: normal exam, mucous membranes moist Neck exam: Present: normal inspection. Absent: tenderness, meningismus, lymphadenopathy Respiratory exam: Present: normal lung sounds bilaterally. Absent: respiratory distress, wheezes, rales, rhonchi, stridor Cardiovascular Exam: Present: regular rate, normal rhythm, normal heart sounds. Absent: systolic murmur, diastolic murmur, rubs, gallop, clicks GI/Abdominal exam: Present: soft, normal bowel sounds. Absent: distended, tenderness, guarding, rebound, rigid Extremities exam: Present: normal inspection, full ROM, normal capillary refill. Absent: tenderness, pedal edema, joint swelling, calf tenderness Back exam: Present: normal inspection Neurological exam: Present: alert, oriented X3, CN II-XII intact Psychiatric exam: Present: normal affect, normal mood Skin exam: Present: warm, dry, intact, normal color. Absent: rash Course Vital Signs 11/08/22 11/09/22 23:08 05:25 Temperature 98.0 F Pulse Rate 93 75 Respiratory 20 12 Rate Blood Pressure 140/77 127/77 O2 Sat by Pulse 99 97 Oximetry - Reevaluation(s) Reevaluation #1: She reports that she still feels nauseated. Additional nausea medications ordered at this time 11/09/22 04:15 Medical Decision Making - Medical Decision Making Was pt. sent in by a medical professional or institution (, PA, TECHNICAL PROJECT LEAD, urgent care, hospital, or custodial...) When possible be specific @ -No Did you speak to anyone other than the patient for history (EMS, parent, family, police, friend...)? What history was obtained from this source @ -No Did you review nursing and triage notes (agree or disagree)? Why? @ -I reviewed and agree with nursing and triage notes Were old charts reviewed (outside hosp., previous admission, EMS record, old EKG, old radiological studies, urgent care reports/EKG's, custodial records)? Report findings @ -No old charts were reviewed Differential Diagnosis (chest pain, altered mental status, abdominal pain women, abdominal pain men, vaginal bleeding, weakness, fever, dyspnea, syncope, headache, dizziness, GI bleed, back pain, seizure, CVA, palpatations, mental health, musculoskeletal)? @ -covid, influenza, gastritis, gastroenteritis, hepatitis a EKG interpreted by me (3pts min.). @ -Not done X-rays interpreted by me (1pt min.). @ -None done CT interpreted by me (1pt min.). @ -yes - no acute process U/S interpreted by me (1pt. min.). @ -None done What testing was considered but not performed or refused? (CT, X-rays, U/S, la bs)? Why? @ -None What meds were considered but not given or refused? Why? @ -None Did you discuss the management of the patient with other professionals (professionals i.e. , PA, TECHNICAL PROJECT LEAD, lab, RT, psych nurse, social service coordinator, sharepoint application architect, teacher, workplace rehabilitation officer, lead case manager)? Give summary @ -No Was smoking cessation discussed for >3mins.? @ -No Was critical care preformed (if so, how long)? @ -No Were there social determinants of health that impacted care today? How? (Homelessness, low income, unemployed, alcoholism, drug addiction, transportation, low edu. Level, literacy, decrease access to med. care, alf, rehab)? @ -No Was there de-escalation of care discussed even if they declined (Discuss DNR or withdrawal of care, Hospice)? DNR status @ -No What co-morbidities impacted this encounter? (DM, HTN, Smoking, COPD, CAD, Cancer, CVA, ARF, Chemo, Hep., AIDS, mental health diagnosis, sleep apnea, morbid obesity)? @ -diverticulitis Was patient admitted / discharged? Hospital course, mention meds given and route, prescriptions, significant lab abnormalities, going to OR and other pertinent info. @ -Upon arrival patient is placed into room 10. Thorough history of physical exam is performed. IV access was established laboratory studies are conducted. Patient is given a liter bolus of normal saline and 4 mg of Zofran. Additionally given 4 mg of morphine for pain control. CT abdomen and pelvis was performed which demonstrates no acute process. Patient reevaluated and states she continues to feel nauseated. She is given 10 mg of Reglan and 25 mg of Benadryl. Patient reevaluated admits to resolution of her symptoms. Patient will be discharged home at this time. Given a Zofran starter pack. Instructed follow-up with primary care doctor to 4 days and return for any new or worsening symptoms. Patient was discharged home in stable condition Undiagnosed new problem with uncertain prognosis? @ -No Drug Therapy requiring intensive monitoring for toxicity (Heparin, Nitro, Insulin, Cardizem)? @ -No Were any procedures done? @ -No Diagnosis/symptom? @ -acute nausea and vomiting Acute, or Chronic, or Acute on Chronic? @ -acute Uncomplicated (without systemic symptoms) or Complicated (systemic symptoms)? @ -complicated Side effects of treatment? @ -allergic reaction Exacerbation, Progression, or Severe Exacerbation? @ -No Poses a threat to life or bodily function? How? (Chest pain, [place], [place], pneumonia, PE, COPD, DKA, ARF, appy, cholecystitis, CVA, Diverticulitis, Homicidal, Suicidal, threat to staff... and all critical care pts) @ -No - Lab Data Result diagrams: 11/09/22 01:09 11/09/22 01:09 Lab Results 11/09/22 11/09/22 11/09/22 Range/Units 01:09 01:09 01:09 WBC 8.2 (3.8-10.6) k/uL RBC 4.56 (3.80-5.40) m/uL Hgb 14.7 (11.4-16.0) gm/dL Hct 42.3 (34.0-46.0) % MCV 92.7 (80.0-100.0) fL MCH 32.2 (25.0-35.0) pg MCHC 34.7 (31.0-37.0) g/dL RDW 12.0 (11.5-15.5) % Plt Count 230 (150-450) k/uL MPV 7.5 Neutrophils % 85 % Lymphocytes % 9 % Monocytes % 4 % Eosinophils % 1 % Basophils % 0 % Neutrophils # 7.0 (1.3-7.7) k/uL Lymphocytes # 0.8 L (1.0-4.8) k/uL Monocytes # 0.3 (0-1.0) k/uL Eosinophils # 0.0 (0-0.7) k/uL Basophils # 0.0 (0-0.2) k/uL PT 10.3 (9.0-12.0) sec INR 1.0 (<1.2) APTT 23.9 (22.0-30.0) sec Sodium 141 (137-145) mmol/L Potassium 4.0 (3.5-5.1) mmol/L Chloride 104 (98-107) mmol/L Carbon Dioxide 23 (22-30) mmol/L Anion Gap 14 mmol/L BUN 15 (7-17) mg/dL Creatinine 0.70 (0.52-1.04) mg/dL Est GFR (CKD-EPI)AfAm >90 (>60 ml/min/1.73 sqM) Est GFR (CKD-EPI)NonAf >90 (>60 ml/min/1.73 sqM) Glucose 139 H (74-99) mg/dL Plasma Lactic Acid Sukh (0.7-2.0) mmol/L Calcium 10.0 (8.4-10.2) mg/dL Total Bilirubin 1.2 (0.2-1.3) mg/dL AST 22 (14-36) U/L ALT 20 (4-34) U/L Alkaline Phosphatase 66 (38-126) U/L Total Protein 7.5 (6.3-8.2) g/dL Albumin 5.0 (3.5-5.0) g/dL Lipase 34 (23-300) U/L Urine Color Urine Appearance (Clear) Urine pH (5.0-8.0) Ur Specific [place] (1.001-1.035) Urine Protein (Negative) Urine Glucose (UA) (Negative) Urine Ketones (Negative) Urine Blood (Negative) Urine Nitrite (Negative) Urine Bilirubin (Negative) Urine Urobilinogen (<2.0) mg/dL Ur Leukocyte Esterase (Negative) Urine RBC (0-5) /hpf Urine WBC (0-5) /hpf Ur Squamous Epith Cells (0-4) /hpf 11/09/22 11/09/22 Range/Units 01:09 03:00 WBC (3.8-10.6) k/uL RBC (3.80-5.40) m/uL Hgb (11.4-16.0) gm/dL Hct (34.0-46.0) % MCV (80.0-100.0) fL MCH (25.0-35.0) pg MCHC (31.0-37.0) g/dL RDW (11.5-15.5) % Plt Count (150-450) k/uL MPV Neutrophils % % Lymphocytes % % Monocytes % % Eosinophils % % Basophils % % Neutrophils # (1.3-7.7) k/uL Lymphocytes # (1.0-4.8) k/uL Monocytes # (0-1.0) k/uL Eosinophils # (0-0.7) k/uL Basophils # (0-0.2) k/uL PT (9.0-12.0) sec INR (<1.2) APTT (22.0-30.0) sec Sodium (137-145) mmol/L Potassium (3.5-5.1) mmol/L Chloride (98-107) mmol/L Carbon Dioxide (22-30) mmol/L Anion Gap mmol/L BUN (7-17) mg/dL Creatinine (0.52-1.04) mg/dL Est GFR (CKD-EPI)AfAm (>60 ml/min/1.73 sqM) Est GFR (CKD-EPI)NonAf (>60 ml/min/1.73 sqM) Glucose (74-99) mg/dL Plasma Lactic Acid Sukh 1.9 (0.7-2.0) mmol/L Calcium (8.4-10.2) mg/dL Total Bilirubin (0.2-1.3) mg/dL AST (14-36) U/L ALT (4-34) U/L Alkaline Phosphatase (38-126) U/L Total Protein (6.3-8.2) g/dL Albumin (3.5-5.0) g/dL Lipase (23-300) U/L Urine Color Light Yellow Urine Appearance Clear (Clear) Urine pH 8.0 (5.0-8.0) Ur Specific [place] >1.050 H (1.001-1.035) Urine Protein Negative (Negative) Urine Glucose (UA) Negative (Negative) Urine Ketones 2+ H (Negative) Urine Blood Trace H (Negative) Urine Nitrite Negative (Negative) Urine Bilirubin Negative (Negative) Urine Urobilinogen <2.0 (<2.0) mg/dL Ur Leukocyte Esterase Negative (Negative) Urine RBC 8 H (0-5) /hpf Urine WBC 1 (0-5) /hpf Ur Squamous Epith Cells 1 (0-4) /hpf - EKG Data EKG Comments: EKG and troponin by myself and demonstrates sinus rhythm with a rate of 75. CO interval 169. QRS 90. QTC of 416. Inverted T-wave 2, 3, aVF. No acute ST segment elevations Disposition Clinical Impression: Gastroenteritis, Nausea and vomiting Disposition: HOME SELF-CARE Condition: Stable Instructions (If sedation given, give patient instructions): Acute Nausea and Vomiting (ED) Additional Instructions: Please take the nausea medications as directed. Attempt to stay hydrated. Follow up with your doctor in 2-4 days and return for any new or worsening symptoms Prescriptions: Ondansetron Odt [Zofran Odt] 4 mg PO Q8HR PRN #15 tab PRN Reason: Nausea Is patient prescribed a controlled substance at d/c from ED?: No Referrals: Maddison Martinez MD [Primary Care Provider] - 1-2 days Time of Disposition: 05:08
[2022-11-09] MEDS ORDERED: ONDANSETRON 4 MG ODT STARTER PACK 2 TAB BTL PO STA (05:06)
[2022-11-09 05:26] VITALS: BP 127/77; PULSE 75; RESP 12
== END 2022-11-09 05:25 | disposition home or self-care (01) ==
LOC: EC 22:48
DX: K52.9 Noninfective gastroenteritis and colitis, unspecified (principal); F12.90 Cannabis use, unspecified, uncomplicated
CPT/HCPCS: 36415; 93005; 80053; 83605; 83690; 85025; 85610; 85730; 81001; 74177; 99284; 96374; 96375 ×3; 96361; J2270; J1200; J2765; J2405; Q9967

== ENCOUNTER 2023-10-09 10:07 | Emergency (ER) | payer OTHER ==
[2023-10-09 10:44] VITALS: RESP 16
--- NOTE | 2023-10-09 11:52 | ED ---
Recheck HPI - General Chief Complaint: Recheck/Abnormal Lab/Rx Stated Complaint: IHS-Needle stick Time Seen by Provider: 10/09/23 10:49 Source: patient, RN notes reviewed Mode of arrival: ambulatory Limitations: no limitations - History of Present Illness Initial Comments: This is a 58-year-old female who presents to the emergency department for a needlestick injury. States that she works as a healthcare educator at the [employer] where she was taking out the trash, when there was a needle sticking out of the back that poked her in the right forearm. Because of the situation, she is unsure who this belonged to. Denies any pain at this time. - Related Data Previous Rx's Medication Instructions Recorded RX: Ciprofloxacin HCl [Cipro] 500 mg PO Q12HR #20 tablet 09/11/20 Hyoscyamine Sulfate [Levsin] 0.125 mg PO Q4H PRN #30 tab 02/01/22 RX: Omeprazole 20 mg PO QAM 14 Days #14 cap 02/01/22 Pseudoephedrine 12Hr [Sudafed 12Hr] 120 mg PO Q12H #20 tab 05/19/22 Ondansetron Odt [Zofran Odt] 4 mg PO Q8HR PRN #15 tab 11/09/22 HYDROcodone/APAP 5-325MG [[place] 1 tab PO Q6HR PRN 3 Days #12 tab 01/07/23 5-325] Ketorolac [Toradol] 10 mg PO Q6HR PRN #15 tab 01/07/23 Emtricitabine/Tenofovir (Tdf) 1 tab PO DAILY 28 Days #28 tab 10/09/23 [Truvada 200 mg-300 mg Tablet] RX: Raltegravir Potassium 400 mg PO Q12H 28 Days #56 tab 10/09/23 [Isentress] Allergies Allergy/AdvReac Type Severity Reaction Status Date / Time No Known Allergies Allergy Verified 10/09/23 10:41 Review of Systems ROS Statement: Those systems with pertinent positive or pertinent negative responses have been documented in the HPI. ROS Other: All systems not noted in ROS Statement are negative. Past Medical History Additional Past Medical History / Comment(s): diverticulosis AND DIVERTICULITIS. HAS ENLARGED PANCREAS. kidney stones History of Any Multi-Drug Resistant Organisms: None Reported Past Surgical History: Tubal Ligation Additional Past Surgical History / Comment(s): COLONOSCOPY Past Anesthesia/Blood Transfusion Reactions: No Reported Reaction Past Psychological History: No Psychological Hx Reported Smoking Status: Never smoker Past Alcohol Use History: Rare Past Drug Use History: Marijuana - Past Family History Mother Family Medical History: No Reported History General Exam Limitations: no limitations General appearance: alert, in no apparent distress Head exam: Present: atraumatic, normocephalic, normal inspection Respiratory exam: Present: normal lung sounds bilaterally. Absent: respiratory distress, wheezes, rales, rhonchi, stridor Cardiovascular Exam: Present: regular rate, normal rhythm, normal heart sounds. Absent: systolic murmur, diastolic murmur, rubs, gallop, clicks Neurological exam: Present: alert, oriented X3, CN II-XII intact Psychiatric exam: Present: normal affect, normal mood Course Vital Signs 10/09/23 10/09/23 10:38 12:49 Temperature 98.2 F 98.1 F Pulse Rate 82 80 Respiratory 16 16 Rate Blood Pressure 121/76 120/79 O2 Sat by Pulse 99 99 Oximetry Medical Decision Making - Medical Decision Making This is a 58 year old female who presents to the emergency department for a needle stick injury. Was pt. sent in by a medical professional or institution? @ -No Did you speak to anyone other than the patient for history? @ -No Did you review nursing and triage notes? @ -Yes, and I agree, it is accurate with regards to the patient's symptoms. Were old charts reviewed? @ -No Differential Diagnosis? @ -Differential Needle Stick Injury: Cellulitis, needle stick, insect bite, this is not meant to be an all-inclusive list. EKG interpreted by me (3pts min.)? @ -Not obtained X-rays interpreted by me (1pt min.)? @ -Not obtained CT interpreted by me (1pt min.)? @ -Not obtained U/S interpreted by me (1pt. min.)? @ -Not obtained What testing was considered but not performed? (CT, X-rays, U/S, labs)? Why? @ -None What meds were considered but not given? Why? @ -None Did you discuss the management of the patient with other professionals? @ -No Did you reconcile home meds? @ -No Was smoking cessation discussed for >3mins.? @ -No Was critical care preformed (if so, how long)? @ -No Were there social determinants of health that impacted care today? How? (Homelessness, low income, unemployed, alcoholism, drug addiction, transportation, low edu. Level, literacy, decrease access to med. care, half-way, rehab)? @ -No Was there de-escalation of care discussed even if they declined? (Discuss DNR or withdrawal of care, Hospice)? @ -No What co-morbidities impacted this encounter? (DM, HTN, Smoking, COPD, CAD, Cancer, CVA, Hep., AIDS, mental health diagnosis, sleep apnea, morbid obesity)? @ -None Was patient admitted / discharged? @ -Discharged. Paperwork and blood work were filled out per IHS requirements for needlestick injuries. Discussed the option of postexposure prophylaxis for HIV with the patient given the inability to track down the individual who the needle belonged to and the circumstances surrounding it. Patient was in agreement with this and a prescription for Isentress and Truvada was provided with dosing instructions reviewed to be taken for 28 days followed by follow-up with infectious disease. Undiagnosed new problem with uncertain prognosis? @ -None Drug Therapy requiring intensive monitoring for toxicity (Heparin, Nitro, Insulin, Cardizem)? @ -None Were any procedures done? @ -None Diagnosis/symptom? @ -Needle stick injury Acute, or Chronic, or Acute on Chronic? @ -Acute Uncomplicated (without systemic symptoms) or Complicated (systemic symptoms)? @ -Uncomplicated Side effects of treatment? @ -None Exacerbation, Progression, or Severe Exacerbation] @ -Not applicable Poses a threat to life or bodily function? @ -No Return precautions reviewed in depth, the patient is instructed to return to the emergency department with any new, worsening, or concerning symptoms. Patient verbalized understanding. This case was discussed in detail with the attending ED physician, Dr. Ford. Presentation, findings, and treatment plan discussed in detail as well. Disposition Clinical Impression: Needle stick injury Disposition: HOME SELF-CARE Instructions (If sedation given, give patient instructions): Postexposure Prophylaxis (ED), Body Substance Exposure (ED) Additional Instructions: Return to the emergency department with any new, worsening, or concerning symptoms. You can take the postexposure prophylaxis for 28 days if you would like to do so. If you choose to do so, contact infectious disease as listed below for a follow-up appointment. Follow up with your primary care provider in 1-2 days. Prescriptions: RX: Raltegravir Potassium [Isentress] 400 mg PO Q12H 28 Days #56 tab Emtricitabine/Tenofovir (Tdf) [Truvada 200 mg-300 mg Tablet] 1 tab PO DAILY 28 Days #28 tab Is patient prescribed a controlled substance at d/c from ED?: No Referrals: Maddison Martinez MD [Primary Care Provider] - 1-2 days Min Strong MD [STAFF PHYSICIAN] - 1-2 days Time of Disposition: 12:36
[2023-10-09 12:56] VITALS: BP 120/79; PULSE 80; TEMP 98.1
[2023-10-09 18:21] LABS: Hepatitis B Surface AB- Quant 3.5 mIU/mL
[2023-10-09 18:56] LABS: Hepatitis B Surface Antigen Nonreactive (Nonreactive); Hepatitis C IgG Antibody Nonreactive (Nonreactive)
[2023-10-09 20:07] LABS: HIV 2 AB Non-Reactive (Non-Reactive); HIV AB P24 Non-Reactive (Non-Reactive); HIV P24 AG Non-Reactive (Non-Reactive)
== END 2023-10-09 13:37 | disposition home or self-care (01) ==
LOC: EC 10:07
DX: S59.911A Unspecified injury of right forearm, initial encounter (principal); F12.90 Cannabis use, unspecified, uncomplicated; W46.0XXA Contact with hypodermic needle, initial encounter; Y99.0 Civilian activity done for income or pay
CPT/HCPCS: 36415; 86704; 86706; 86803; 87340; 87390; 99283

== ENCOUNTER → 2023-12-01 | Outpatient (CLI) | payer OTHER ==
--- NOTE | 2023-12-08 11:54 | MM ---
Reason for Exam: Screening (asymptomatic). Last mammogram was performed 3 year(s) and 1 month(s) ago. Patient History: Menarche at age 13. Postmenopausal. Cyst Aspiration on the Left side. 01/29/2004, Benign Ultrasound-Guided Cyst Aspiration on the left side. 01/29/2004, Benign Cyst Aspiration on the left side. Risk Values: Constance 5 year model risk: 0.9%. NCI Lifetime model risk: 5.0%. Prior Study Comparison: 01/04/2019 Bilateral Screening Mammogram, [facility]. 11/09/2019 Bilateral Diagnostic Mammogram, [facility]. 11/15/2020 Bilateral Screening Mammogram, [facility]. Tissue Density: There are scattered areas of fibroglandular density. Findings: Analyzed By CAD. Right breast: There is no suspicious group of microcalcifications or new suspicious mass. Left breast: There is no suspicious group of microcalcifications or new suspicious mass. Overall Assessment: Negative, BI-RAD 1 Management: Screening Mammogram of both breasts in [address] [facility] will attempt to contact patient to return for supplemental views and ultrasound if indicated. Patient should continue monthly self-breast exams. A clinical breast exam by your physician is recommended on an annual basis. This exam should not preclude additional follow-up of suspicious palpable abnormalities. Note on Constance scores and lifetime risk: 1. A Constance score greater than 3% is considered moderate risk. If this is the case, consider specialist referral to assess eligibility for a risk reducing agent. 2. If overall lifetime risk for the development of breast cancer is 20% or higher, the patient may qualify for future screening with alternating mammogram and breast MRI. Electronically signed and approved by: Mahin Kessler DO
== END | disposition home or self-care (01) ==
LOC: RADMAMWWP 16:55
PROVIDERS: ATTEND Family Medicine
DX: Z12.31 Encounter for screening mammogram for malignant neoplasm of breast (principal); Z78.0 Asymptomatic menopausal state
CPT/HCPCS: 77067

== ENCOUNTER → 2024-01-07 | Outpatient (CLI) | payer OTHER ==
--- NOTE | 2024-01-07 13:59 | US ---
EXAMINATION TYPE: US venous doppler duplex LE BI DATE OF EXAM: 01/07/2024 1:36 PM COMPARISON: NONE CLINICAL INDICATION: Female, 58 years old with history of M79.605 Pain in left leg M79.604 Pain in ri ght leg; bilat post knee pain/ edema SIDE PERFORMED: Bilateral TECHNIQUE: The lower extremity deep venous system is examined utilizing real time linear array sonog jimbo with graded compression, doppler sonography and color-flow sonography. VESSELS IMAGED: Common Femoral Vein Deep Femoral Vein Greater Saphenous Vein * Femoral Vein Popliteal Vein Small Saphenous Vein * Proximal Calf Veins (* superficial vessels) Right Leg: Negative for DVT Left Leg: Negative for DVT there is a 4.8x1.7x2.4cm bakers cyst at the right pop fossa IMPRESSION: Grayscale, color doppler, spectral doppler imaging performed of the deep veins of the lo wer extremities. There is normal flow, compressibility, vascular waveforms.
--- NOTE | 2024-01-07 14:49 | XR ---
EXAMINATION TYPE: XR lumbosacral spine 5V, XR femur 2 views bilateral, XR knee complete 3 views bilat era DATE OF EXAM: 01/07/2024 Comparison: Lumbar spine 11/25/2018 Clinical History: 58-year-old female M79.605 Pain in left leg M79.604 Pain in right leg Findings: Lumbar spine: 5 lumbar type vertebral bodies. Hypertrophic facet arthropathy mid to lower lumbar spine. Moderate de generative disc disease L5-S1 and L3-L4. Mild degenerative disc disease elsewhere in the lumbar spine . Degenerative grade 1 retrolisthesis L2-L3 and L3-L4. Vertebral body heights are preserved. Femurs: Hip joints are intact on both sides as are the SI joints and pubic symphysis. No acute fracture is id entified. No periostitis or osteolysis. Knees: Tricompartmental degenerative spurring, greatest in the left medial and lateral compartments. Small-t o-moderate right and small left pleural effusions. Extensor mechanisms are intact. No acute fracture, subluxation, or dislocation seen. Impression: 1. Lumbar spine: Moderate degenerative disc disease L3-L4 and L5-S1 and mild elsewhere in the lumbar spine. Hypertrophic facet arthropathy with degenerative grade 1 retrolisthesis L2-L3 and L3-L4. No ve rtebral compression collapse. 2. Femurs: No acute osseous abnormality seen. 3. Knees: Tricompartmental degenerative spurring, greatest in the left medial and lateral compartment s. Possible small to moderate right and small left joint effusions. If pain persists or if concern fo r internal derangement, MRI can be considered.
== END | disposition home or self-care (01) ==
LOC: RADUSWWP 13:07
PROVIDERS: ATTEND Family Medicine
DX: M51.36 Other intervertebral disc degeneration, lumbar region (principal); M47.816 Spondylosis without myelopathy or radiculopathy, lumbar region; M51.37 Other intervertebral disc degeneration, lumbosacral region; M43.16 Spondylolisthesis, lumbar region; M17.12 Unilateral primary osteoarthritis, left knee; M79.605 Pain in left leg; M79.604 Pain in right leg
CPT/HCPCS: 72110; 93970

== ENCOUNTER 2024-02-16 13:19 | Emergency (ER) | payer OTHER ==
[2024-02-16 13:26] VITALS: RESP 18; TEMP 98.2
--- NOTE | 2024-02-16 13:56 | ED ---
Dizziness HPI - General Chief Complaint: Dizziness Stated Complaint: Dizziness Time Seen by Provider: 02/16/24 13:40 Source: patient, RN notes reviewed Mode of arrival: ambulatory Limitations: no limitations - History of Present Illness Initial Comments: 88-year-old female presenting with dizziness x 1 week. States she has also been dealing with ringing in both of her ears for several months. Reports the feeling of "room is spinning" mostly when she stands up from a sitting position. States she does have a history of vertigo but this feels different. She has also been dealing with intermittent headaches and heart palpitations. States she feels nauseous due to the dizziness. Denies chest pain, shortness of breath, syncope. Denies blood thinners. - Related Data Previous Rx's Medication Instructions Recorded Ciprofloxacin HCl [Cipro] 500 mg PO Q12HR #20 tablet 09/11/20 Hyoscyamine Sulfate [Levsin] 0.125 mg PO Q4H PRN #30 tab 02/01/22 Omeprazole 20 mg PO QAM 14 Days #14 cap 02/01/22 Pseudoephedrine 12Hr [Sudafed 12Hr] 120 mg PO Q12H #20 tab 05/19/22 Ondansetron Odt [Zofran Odt] 4 mg PO Q8HR PRN #15 tab 11/09/22 HYDROcodone/APAP 5-325MG [Archie 1 tab PO Q6HR PRN 3 Days #12 tab 01/07/23 5-325] Ketorolac [Toradol] 10 mg PO Q6HR PRN #15 tab 01/07/23 Emtricitabine/Tenofovir (Tdf) 1 tab PO DAILY 28 Days #28 tab 10/09/23 [Truvada 200 mg-300 mg Tablet] Raltegravir Potassium [Isentress] 400 mg PO Q12H 28 Days #56 tab 10/09/23 Meclizine [Antivert] 25 mg PO DAILY PRN #15 tab 02/16/24 Allergies Allergy/AdvReac Type Severity Reaction Status Date / Time No Known Allergies Allergy Verified 02/16/24 13:25 Review of Systems ROS Statement: Those systems with pertinent positive or pertinent negative responses have been documented in the HPI. ROS Other: All systems not noted in ROS Statement are negative. Past Medical History Additional Past Medical History / Comment(s): diverticulosis AND DIVERTICULITIS. HAS ENLARGED PANCREAS. kidney stones History of Any Multi-Drug Resistant Organisms: None Reported Past Surgical History: Tubal Ligation Additional Past Surgical History / Comment(s): COLONOSCOPY Past Anesthesia/Blood Transfusion Reactions: No Reported Reaction Past Psychological History: No Psychological Hx Reported Smoking Status: Never smoker Past Alcohol Use History: Rare Past Drug Use History: Marijuana - Past Family History Mother Family Medical History: No Reported History General Exam Limitations: no limitations General appearance: alert, in no apparent distress Head exam: Present: atraumatic, normocephalic, normal inspection Eye exam: Present: normal appearance, PERRL, EOMI. Absent: scleral icterus, conjunctival injection, periorbital swelling ENT exam: Present: normal exam, normal oropharynx, mucous membranes moist, TM's normal bilaterally Neck exam: Present: normal inspection. Absent: tenderness, meningismus, lymphadenopathy Respiratory exam: Present: normal lung sounds bilaterally. Absent: respiratory distress, wheezes, rales, rhonchi, stridor Cardiovascular Exam: Present: regular rate, normal rhythm, normal heart sounds. Absent: systolic murmur, diastolic murmur, rubs, gallop, clicks GI/Abdominal exam: Present: soft, normal bowel sounds. Absent: distended, tenderness, guarding, rebound, rigid Extremities exam: Present: normal inspection, full ROM, normal capillary refill. Absent: tenderness, pedal edema, joint swelling, calf tenderness Neurological exam: Present: alert, oriented X3, CN II-XII intact Psychiatric exam: Present: normal affect, normal mood Skin exam: Present: warm, dry, intact, normal color. Absent: rash Course Vital Signs 02/16/24 13:23 Temperature 98.2 F Pulse Rate 104 H Respiratory 18 Rate Blood Pressure 144/81 O2 Sat by Pulse 100 Oximetry EKG Findings - EKG Results: EKG: interpreted by ERMD (EKG reveals sinus bradycardia with no ST changes. Ventricular rate 54 bpm, CT interval 152, QRS duration 81, QT/QTc 416/401.) Medical Decision Making - Medical Decision Making Was pt. sent in by a medical professional or institution (, PA, [employer], urgent care, hospital, or senior living...) When possible be specific @ -No Did you speak to anyone other than the patient for history (EMS, parent, family, police, friend...)? What history was obtained from this source @ -No Did you review nursing and triage notes (agree or disagree)? Why? @ -I reviewed and agree with nursing and triage notes Were old charts reviewed (outside hosp., previous admission, EMS record, old E KG, old radiological studies, urgent care reports/EKG's, senior living records)? Report findings @ -No old charts were reviewed Differential Diagnosis (chest pain, altered mental status, abdominal pain women, abdominal pain men, vaginal bleeding, weakness, fever, dyspnea, syncope, headache, dizziness, GI bleed, back pain, seizure, CVA, palpatations, mental health, musculoskeletal)? @ -Differential Dizziness: Benign paroxysmal positional Vertigo, Meniere's disease, otitis media, acoustic neuroma, vertebrobasilar insufficiency, cerebellar stroke, encephalitis, hypovolemic, arrhythmia, coronary artery syndrome, anemia, this is not meant to be an all-inclusive list EKG interpreted by me (3pts min.). @ -As above X-rays interpreted by me (1pt min.). @ -None done CT interpreted by me (1pt min.). @ -CT of head revealed no acute process U/S interpreted by me (1pt. min.). @ -None done What testing was considered but not performed or refused? (CT, X-rays, U/S, labs)? Why? @ -None What meds were considered but not given or refused? Why? @ -None Did you discuss the management of the patient with other professionals (professionals i.e. , PA, [employer], lab, RT, psych nurse, perinatal social worker, ceramic tile installer, teacher, retail loss prevention officer, case sealer)? Give summary @ -No Was smoking cessation discussed for >3mins.? @ -No Was critical care preformed (if so, how long)? @ -No Were there social determinants of health that impacted care today? How? (Homelessness, low income, unemployed, alcoholism, drug addiction, transportation, low edu. Level, literacy, decrease access to med. care, group home, rehab)? @ -No Was there de-escalation of care discussed even if they declined (Discuss DNR or withdrawal of care, Hospice)? DNR status @ -No What co-morbidities impacted this encounter? (DM, HTN, Smoking, COPD, CAD, Canc er, CVA, ARF, Chemo, Hep., AIDS, mental health diagnosis, sleep apnea, morbid obesity)? @ -None Was patient admitted / discharged? Hospital course, mention meds given and route, prescriptions, significant lab abnormalities, going to OR and other pertinent info. @ -Patient was discharged. Patient was seen and evaluated for dizziness x 1 week with tinnitus. Patient does have a history of vertigo. Neuro examination is unremarkable. Patient is provided with IV fluids and meclizine. EKG reveals sinus bradycardia with no ST changes. CT of head reveals no acute process. Lab work including CBC, CMP, troponin is unremarkable. Upon reevaluation, patient states symptoms have improved. Discussed findings with patient. Discussed likely diagnosis of vertigo, prescribed meclizine to pharmacy. Advise close follow-up with PCP for further testing. Strict return parameters discussed. Patient is agreeable to plan and feels stable for discharge. Case was discussed with my ED attending Dr. Ford. Patient discharged in stable condition. Undiagnosed new problem with uncertain prognosis? @ -No Drug Therapy requiring intensive monitoring for toxicity (Heparin, Nitro, Insulin, Cardizem)? @ -No Were any procedures done? @ -No Diagnosis/symptom? @ -Vertigo Acute, or Chronic, or Acute on Chronic? @ -Acute Uncomplicated (without systemic symptoms) or Complicated (systemic symptoms)? @ -Uncomplicated Side effects of treatment? @ -No Exacerbation, Progression, or Severe Exacerbation? @ -No Poses a threat to life or bodily function? How? (Chest pain, USA, NH, pneumonia, PE, COPD, DKA, ARF, appy, cholecystitis, CVA, Diverticulitis, Homicidal, Suicidal, threat to staff... and all critical care pts) @ -Not at this time - Lab Data Result diagrams: 02/16/24 14:09 02/16/24 14:09 Lab Results 02/16/24 02/16/24 02/16/24 Range/Units 14:09 14:09 14:09 WBC 5.5 (3.8-10.6) k/uL RBC 4.08 (3.80-5.40) m/uL Hgb 13.2 (11.4-16.0) gm/dL Hct 38.6 (34.0-46.0) % MCV 94.5 (80.0-100.0) fL MCH 32.4 (25.0-35.0) pg MCHC 34.3 (31.0-37.0) g/dL RDW 12.6 (11.5-15.5) % Plt Count 193 (150-450) k/uL MPV 7.8 Neutrophils % 55 % Lymphocytes % 30 % Monocytes % 5 % Eosinophils % 7 % Basophils % 0 % Neutrophils # 3.0 (1.3-7.7) k/uL Lymphocytes # 1.7 (1.0-4.8) k/uL Monocytes # 0.3 (0-1.0) k/uL Eosinophils # 0.4 (0-0.7) k/uL Basophils # 0.0 (0-0.2) k/uL Sodium 135 L (137-145) mmol/L Potassium 4.3 (3.5-5.1) mmol/L Chloride 111 H (98-107) mmol/L Carbon Dioxide 23 (22-30) mmol/L Anion Gap 1 mmol/L BUN 13 (7-17) mg/dL Creatinine 0.79 (0.52-1.04) mg/dL Est GFR (CKD-EPI)AfAm >90 (>60 ml/min/1.73 sqM) Est GFR (CKD-EPI)NonAf 83 (>60 ml/min/1.73 sqM) Glucose 85 (74-99) mg/dL Calcium 9.3 (8.4-10.2) mg/dL Total Bilirubin 0.7 (0.2-1.3) mg/dL AST 22 (14-36) U/L ALT 14 (4-34) U/L Alkaline Phosphatase 64 (38-126) U/L Troponin I <0.012 (0.000-0.034) ng/mL Total Protein 6.2 L (6.3-8.2) g/dL Albumin 4.2 (3.5-5.0) g/dL Disposition Clinical Impression: Vertigo Disposition: HOME SELF-CARE Condition: Stable Instructions (If sedation given, give patient instructions): Dizziness (ED) Additional Instructions: Follow-up with PCP as discussed. Please return to the Emergency Department if symptoms worsen or any other concerns. Prescriptions: Meclizine [Antivert] 25 mg PO DAILY PRN #15 tab PRN Reason: dizziness Is patient prescribed a controlled substance at d/c from ED?: No Referrals: Maddison Martinez MD [Primary Care Provider] - 1-2 days Time of Disposition: 16:29
[2024-02-16] MEDS: MECLIZINE 12.5 MG TAB PO STA (14:23)
[2024-02-16 14:24] LABS: Basophils % (A) 0 %; Eosinophils # (A) 0.4 k/uL (0-0.7); Eosinophils % (A) 7 %; HCT 38.6 % (34.0-46.0); HGB 13.2 gm/dL (11.4-16.0); Lymphocytes # (A) 1.7 k/uL (1.0-4.8); Lymphocytes % (A) 30 %; MCH 32.4 pg (25.0-35.0); MCHC 34.3 g/dL (31.0-37.0); MCV 94.5 fL (80.0-100.0); Mean Platelet Volume 7.8; Monocytes # (A) 0.3 k/uL (0-1.0); Monocytes % (A) 5 %; Neutrophils % (A) 55 %; Platelet Count 193 k/uL (150-450); RBC 4.08 m/uL (3.80-5.40); RDW 12.6 % (11.5-15.5); WBC 5.5 k/uL (3.8-10.6)
[2024-02-16] MEDS: ONDANSETRON 4 MG/2 ML VIAL IVP STA (14:24)
[2024-02-16] MEDS: SODIUM CHLORIDE 0.9% 1,000 ML IV STA (14:25)
[2024-02-16 14:35] LABS: ALT 14 U/L (4-34); AST 22 U/L (14-36); African American GFR (CKD) >90 (>60 ml/min/1.73 sqM); Albumin 4.2 g/dL (3.5-5.0); Alkaline Phosphatase 64 U/L (38-126); Anion Gap 1 mmol/L; Blood Urea Nitrogen 13 mg/dL (7-17); Calcium 9.3 mg/dL (8.4-10.2); Carbon Dioxide 23 mmol/L (22-30); Chloride 111 mmol/L (98-107); Glucose 85 mg/dL (74-99); Non-African American GFR(CKD) 83 (>60 ml/min/1.73 sqM); Potassium 4.3 mmol/L (3.5-5.1); Sodium 135 mmol/L (137-145); Total Bilirubin 0.7 mg/dL (0.2-1.3); Total Protein 6.2 g/dL (6.3-8.2)
--- NOTE | 2024-02-16 15:13 | CT ---
EXAMINATION TYPE: CT brain wo con CT DLP: 1072.4 mGycm, Automated exposure control for dose reduction was used. DATE OF EXAM: 02/16/2024 3:04 PM COMPARISON: None. CLINICAL INDICATION:Female, 58 years old with history of dizziness x 1 week, Dizziness x1wk, ringing in ears. TECHNIQUE: Brain: Multiple axial CT images of the brain were obtained without IV contrast. . Coronal and sagitta l reformats reviewed. FINDINGS: Brain: Extra-axial spaces: No abnormal extra-axial fluid collections. Ventricular system: Within normal limits Cerebral parenchyma: No acute intraparenchymal hemorrhage or mass effect. The mora-white junction is well differentiated. Scattered hypoattenuating areas are seen within the periventricular white matte r. Cerebellum: Unremarkable. Mass effect: No evidence of midline shift. Intracranial vasculature: unremarkable Soft tissues: Normal. Calvarium/osseous structures: No depressed skull fracture. Remote fracture to the medial right orbita l wall. Paranasal sinuses and mastoid air cells: Mild scattered paranasal sinus disease. Mastoid air cells ar e clear. Visualized orbits: Orbital contents are intact. IMPRESSION: 1. No acute intracranial process. 2. Nonspecific white matter changes, likely secondary to chronic small vessel ischemic disease.
[2024-02-16 16:41] VITALS: BP 134/84; PULSE 98
== END 2024-02-16 16:41 | disposition home or self-care (01) ==
LOC: EC 13:19
DX: R42 Dizziness and giddiness (principal)
CPT/HCPCS: 36415; 70450; 80053; 84484; 85025; 93005; 96374; 99284

== ENCOUNTER 2024-03-10 12:54 | Emergency (ER) | payer OTHER ==
--- NOTE | 2024-03-10 14:18 | ED ---
General Adult HPI - General Chief complaint: Abdominal Pain Stated complaint: abdominal pain Time Seen by Provider: 03/10/24 13:40 Source: patient, RN notes reviewed, old records reviewed Mode of arrival: ambulatory Limitations: no limitations - History of Present Illness Initial comments: Patient is a 58-year-old female presents emergency department complaining of abdominal pain. Has a history of diverticulitis and states that this is what it feels like. Has been ongoing for 1 day with diarrhea. No blood in her stool. Denies any emesis but does endorse nausea. Denies chest pain or shortness of breath. Denies any other abdominal surgery other than tubal ligation. Presents for further evaluation at this time. No fevers or chills. No vaginal discharge or bleeding. No urinary complaints. - Related Data Home Medications Medication Instructions Recorded Confirmed Meclizine [Antivert] 25 mg PO BID PRN 03/10/24 03/10/24 Meloxicam [Mobic] 7.5 mg PO DAILY PRN 03/10/24 03/10/24 Allergies Allergy/AdvReac Type Severity Reaction Status Date / Time No Known Allergies Allergy Verified 03/10/24 16:38 Review of Systems ROS Statement: Those systems with pertinent positive or pertinent negative responses have been documented in the HPI. Review of Systems: CONST: Denies fever EYES: Denies blurry vision ENT: Denies nasal congestion C/V: Denies Chest pain RESP: Denies shortness of breath GI: Endorses abdominal pain : Denies dysuria SKIN: Denies rash. MSK: Denies joint pain. NEURO: Denies headache ROS Other: All systems not noted in ROS Statement are negative. Past Medical History Additional Past Medical History / Comment(s): diverticulosis AND DIVERTICULITIS. HAS ENLARGED PANCREAS. kidney stones History of Any Multi-Drug Resistant Organisms: None Reported Past Surgical History: Tubal Ligation Additional Past Surgical History / Comment(s): COLONOSCOPY Past Anesthesia/Blood Transfusion Reactions: No Reported Reaction Past Psychological History: No Psychological Hx Reported Smoking Status: Never smoker Past Alcohol Use History: Rare Past Drug Use History: Marijuana - Past Family History Mother Family Medical History: No Reported History General Exam - General Exam Comments Initial Comments: General: Appears in mild distress secondary to abdominal pain. HEAD: Normal with no signs of head trauma. EYES: EOMI ENT: Hearing grossly intact, normal oropharynx. RESPIRATORY: Clear breath sounds bilaterally. No wheezes, rales, or rhonchi. C/V: Regular rate and rhythm. S1 and S2 auscultated, no edema, peripheral pulses 2+ and intact throughout ABD: Abdomen is soft, nondistended. Tender to palpation of the left lower quadrant. No guarding or rebound tenderness. No peritoneal signs. No CVA tenderness to percussion. EXT: No obvious deformity SKIN: No rashes or lesions observed on exposed skin. NEURO: Alert and oriented x 4. Limitations: no limitations Course Vital Signs 03/10/24 03/10/24 03/10/24 12:58 15:09 17:18 Temperature 97.8 F 98.4 F Pulse Rate 112 H 74 78 Respiratory 18 16 Rate Blood Pressure 140/93 135/84 132/71 O2 Sat by Pulse 99 99 99 Oximetry Medical Decision Making - Medical Decision Making Was pt. sent in by a medical professional or institution (, PA, COMPUTER ENGINEERING PROFESSOR, urgent ca re, hospital, or penitentiary...) When possible be specific @ -No Did you speak to anyone other than the patient for history (EMS, parent, family, police, friend...)? What history was obtained from this source @ -No Did you review nursing and triage notes (agree or disagree)? Why? @ -I reviewed and agree with nursing and triage notes Were old charts reviewed (outside hosp., previous admission, EMS record, old EKG, old radiological studies, urgent care reports/EKG's, penitentiary records)? Report findings @ -No old charts were reviewed Differential Diagnosis (chest pain, altered mental status, abdominal pain women, abdominal pain men, vaginal bleeding, weakness, fever, dyspnea, syncope, headache, dizziness, GI bleed, back pain, seizure, CVA, palpatations, mental health, musculoskeletal)? @ -Differential Abdominal Pain Women: Appendicitis, Cholecystitis, diverticulosis, ischemic bowel, pancreatitis, hepatitis, UTI, gastroenteritis, AAA, incarcerated hernia, bowel obstruction, c onstipation, inflammatory bowel, hepatitis, peptic ulcer disease, splenic infarction, perforated viscus, vulvitis, ovarian torsion, PID, kidney stone, placenta abruption, this is not meant to be an all-inclusive list EKG interpreted by me (3pts min.). @ -None done X-rays interpreted by me (1pt min.). @ -None done CT interpreted by me (1pt min.). @ -Pending U/S interpreted by me (1pt. min.). @ -None done What testing was considered but not performed or refused? (CT, X-rays, U/S, labs)? Why? @ -None What meds were considered but not given or refused? Why? @ -None Did you discuss the management of the patient with other professionals (professionals i.e. Dr., PA, COMPUTER ENGINEERING PROFESSOR, lab, RT, psych nurse, social contact worker, hospital carrier, teacher, inspectors and regulatory officers, special education case manager)? Give summary @ -No Was smoking cessation discussed for >3mins.? @ -No Was critical care preformed (if so, how long)? @ -No Were there social determinants of health that impacted care today? How? (Homelessness, low income, unemployed, alcoholism, drug addiction, transportation, low edu. Level, literacy, decrease access to med. care, prison, rehab)? @ -No Was there de-escalation of care discussed even if they declined (Discuss DNR or withdrawal of care, Hospice)? DNR status @ -No What co-morbidities impacted this encounter? (DM, HTN, Smoking, COPD, CAD, Cancer, CVA, ARF, Chemo, Hep., AIDS, mental health diagnosis, sleep apnea, morbid obesity)? @ -Prior diverticulitis Was patient admitted / discharged? Hospital course, mention meds given and route, prescriptions, significant lab abnormalities, going to OR and other pertinent info. @ -Patient presents emergency department abdominal pain. Vitals are remarkable for mild tachycardia likely secondary to pain. She will be symptomatically treat with IV fluids, Protonix, Toradol, Zofran. We will obtain abdominal laboratory studies and CT abdomen pelvis will be obtained. Patient was in agreement this plan. Workup is pending at this time. Patient will be signed out to oncoming emergency department physician Dr. Ambriz Pending results of workup. Undiagnosed new problem with uncertain prognosis? @ -No Drug Therapy requiring intensive monitoring for toxicity (Heparin, Nitro, Insulin, Cardizem)? @ -No Were any procedures done? @ -No - Lab Data Result diagrams: 03/10/24 13:27 03/10/24 13:27 Lab Results 09/19/24 09/19/24 09/19/24 Range/Units 13:27 13:27 13:27 WBC 8.6 (3.8-10.6) k/uL RBC 4.78 (3.80-5.40) m/uL Hgb 15.0 (11.4-16.0) gm/dL Hct 44.9 (34.0-46.0) % MCV 94.1 (80.0-100.0) fL MCH 31.4 (25.0-35.0) pg MCHC 33.4 (31.0-37.0) g/dL RDW 12.4 (11.5-15.5) % Plt Count 273 (150-450) k/uL MPV 7.3 Neutrophils % 67 % Lymphocytes % 22 % Monocytes % 5 % Eosinophils % 4 % Basophils % 0 % Neutrophils # 5.8 (1.3-7.7) k/uL Lymphocytes # 1.9 (1.0-4.8) k/uL Monocytes # 0.5 (0-1.0) k/uL Eosinophils # 0.3 (0-0.7) k/uL Basophils # 0.0 (0-0.2) k/uL PT 9.8 L (10.0-12.5) sec INR 0.9 (<1.2) APTT 24.2 (22.0-30.0) sec Sodium 139 (137-145) mmol/L Potassium 4.3 (3.5-5.1) mmol/L Chloride 107 (98-107) mmol/L Carbon Dioxide 24 (22-30) mmol/L Anion Gap 8 mmol/L BUN 11 (7-17) mg/dL Creatinine 0.77 (0.52-1.04) mg/dL Est GFR (CKD-EPI)AfAm >90 (>60 ml/min/1.73 sqM) Est GFR (CKD-EPI)NonAf 85 (>60 ml/min/1.73 sqM) Glucose 105 H (74-99) mg/dL Plasma Lactic Acid Sukh (0.7-2.0) mmol/L Calcium 10.0 (8.4-10.2) mg/dL Total Bilirubin 1.2 (0.2-1.3) mg/dL AST 19 (14-36) U/L ALT 15 (4-34) U/L Alkaline Phosphatase 81 (38-126) U/L Total Protein 7.2 (6.3-8.2) g/dL Albumin 4.7 (3.5-5.0) g/dL Amylase 48 (30-110) U/L Lipase 27 (23-300) U/L Urine Color Urine Appearance (Clear) Urine pH (5.0-8.0) Ur Specific [place] (1.001-1.035) Urine Protein (Negative) Urine Glucose (UA) (Negative) Urine Ketones (Negative) Urine Blood (Negative) Urine Nitrite (Negative) Urine Bilirubin (Negative) Urine Urobilinogen (<2.0) mg/dL Ur Leukocyte Esterase (Negative) Urine RBC (0-5) /hpf Urine WBC (0-5) /hpf 03/10/24 03/10/24 Range/Units 13:27 14:50 WBC (3.8-10.6) k/uL RBC (3.80-5.40) m/uL Hgb (11.4-16.0) gm/dL Hct (34.0-46.0) % MCV (80.0-100.0) fL MCH (25.0-35.0) pg MCHC (31.0-37.0) g/dL RDW (11.5-15.5) % Plt Count (150-450) k/uL MPV Neutrophils % % Lymphocytes % % Monocytes % % Eosinophils % % Basophils % % Neutrophils # (1.3-7.7) k/uL Lymphocytes # (1.0-4.8) k/uL Monocytes # (0-1.0) k/uL Eosinophils # (0-0.7) k/uL Basophils # (0-0.2) k/uL PT (10.0-12.5) sec INR (<1.2) APTT (22.0-30.0) sec Sodium (137-145) mmol/L Potassium (3.5-5.1) mmol/L Chloride (98-107) mmol/L Carbon Dioxide (22-30) mmol/L Anion Gap mmol/L BUN (7-17) mg/dL Creatinine (0.52-1.04) mg/dL Est GFR (CKD-EPI)AfAm (>60 ml/min/1.73 sqM) Est GFR (CKD-EPI)NonAf (>60 ml/min/1.73 sqM) Glucose (74-99) mg/dL Plasma Lactic Acid Sukh 0.9 (0.7-2.0) mmol/L Calcium (8.4-10.2) mg/dL Total Bilirubin (0.2-1.3) mg/dL AST (14-36) U/L ALT (4-34) U/L Alkaline Phosphatase (38-126) U/L Total Protein (6.3-8.2) g/dL Albumin (3.5-5.0) g/dL Amylase (30-110) U/L Lipase (23-300) U/L Urine Color Colorless Urine Appearance Clear (Clear) Urine pH 6.5 (5.0-8.0) Ur Specific [place] 1.005 (1.001-1.035) Urine Protein Negative (Negative) Urine Glucose (UA) Negative (Negative) Urine Ketones Negative (Negative) Urine Blood Trace H (Negative) Urine Nitrite Negative (Negative) Urine Bilirubin Negative (Negative) Urine Urobilinogen <2.0 (<2.0) mg/dL Ur Leukocyte Esterase Negative (Negative) Urine RBC 1 (0-5) /hpf Urine WBC 1 (0-5) /hpf Disposition Clinical Impression: Abdominal pain Disposition: HOME SELF-CARE Condition: Good Is patient prescribed a controlled substance at d/c from ED?: No Referrals: Maddison Martinez MD [Primary Care Provider] - 1-2 days
[2024-03-10] MEDS: SODIUM CHLORIDE 0.9% 1,000 ML IV STA (14:22)
[2024-03-10] MEDS: PANTOPRAZOLE 40 MG/10 ML VIAL IVP STA ×2 (14:22→14:23)
[2024-03-10] MEDS: ONDANSETRON 4 MG/2 ML VIAL IVP STA (14:22)
[2024-03-10] MEDS: KETOROLAC 15 MG/ML 1 ML VIAL IVP STA (14:22)
[2024-03-10 15:10] VITALS: TEMP 98.4
[2024-03-10 15:13] LABS: Basophils % (A) 0 %; Eosinophils # (A) 0.3 k/uL (0-0.7); Eosinophils % (A) 4 %; HCT 44.9 % (34.0-46.0); Lymphocytes # (A) 1.9 k/uL (1.0-4.8); Lymphocytes % (A) 22 %; MCH 31.4 pg (25.0-35.0); MCHC 33.4 g/dL (31.0-37.0); MCV 94.1 fL (80.0-100.0); Mean Platelet Volume 7.3; Monocytes # (A) 0.5 k/uL (0-1.0); Monocytes % (A) 5 %; Neutrophils # (A) 5.8 k/uL (1.3-7.7); Neutrophils % (A) 67 %; Platelet Count 273 k/uL (150-450); RBC 4.78 m/uL (3.80-5.40); RDW 12.4 % (11.5-15.5); WBC 8.6 k/uL (3.8-10.6)
[2024-03-10 15:22] LABS: ALT 15 U/L (4-34); AST 19 U/L (14-36); African American GFR (CKD) >90 (>60 ml/min/1.73 sqM); Albumin 4.7 g/dL (3.5-5.0); Alkaline Phosphatase 81 U/L (38-126); Amylase 48 U/L (30-110); Anion Gap 8 mmol/L; Blood Urea Nitrogen 11 mg/dL (7-17); Carbon Dioxide 24 mmol/L (22-30); Chloride 107 mmol/L (98-107); Glucose 105 mg/dL (74-99); Lipase 27 U/L (23-300); Non-African American GFR(CKD) 85 (>60 ml/min/1.73 sqM); Potassium 4.3 mmol/L (3.5-5.1); Sodium 139 mmol/L (137-145); Total Bilirubin 1.2 mg/dL (0.2-1.3); Total Protein 7.2 g/dL (6.3-8.2)
[2024-03-10 15:24] LABS: Appearance,Urine Clear (Clear); Bilirubin,Urine Negative (Negative); Blood,Urine Trace (Negative); Color,Urine Colorless; Glucose,Urine (UA) Negative (Negative); Ketones,Urine Negative (Negative); Leukocyte Esterase,Urine Negative (Negative); Nitrite,Urine Negative (Negative); PH, Urine 6.5 (5.0-8.0); Protein,Urine Negative (Negative); RBC,Urine 1 /hpf (0-5); Specific Gravity,Urine 1.005 (1.001-1.035); Urobilinogen,Urine <2.0 mg/dL (<2.0); WBC,Urine 1 /hpf (0-5)
[2024-03-10 15:27] LABS: INR 0.9 (<1.2); Partial Thromboplastin Time 24.2 sec (22.0-30.0); Prothrombin Time 9.8 sec (10.0-12.5)
--- NOTE | 2024-03-10 15:39 | CT ---
EXAMINATION TYPE: CT abdomen pelvis w con DATE OF EXAM: 03/10/2024 COMPARISON: 01/07/2023 HISTORY: 58-year-old female Severe abdominal pain Hx of diverticulitis. TECHNIQUE: Contiguous axial scanning of the abdomen and pelvis following administration of 100 ml Iso brigida 300 IV contrast. Delayed images through the kidneys and coronal/sagittal reconstructions perform ed. CT DLP: 997 mGycm Automated exposure control for dose reduction was used. FINDINGS: Heart normal size without pericardial effusion. Strandy atelectasis posterior lung bases. N o pleural effusion. 1.1 cm cyst mid liver adjacent to the gallbladder fossa. Portal venous system is patent. No biliary d uctal dilatation. Gallbladder, adrenal glands, right kidney, spleen, and pancreas appear within normal limits. Tiny 9 mm cortical cyst noted in the lateral aspect of the left kidney. No dilated small bowel, free fluid, or free air. Though there is suggestion of some small bowel wall thickening in the left midabdomen. No mesenteric or retroperitoneal lymphadenopathy. Normal appendix. Liquid stool within the right side of the colon with mild to moderate pancolonic circumferential thic kening extending distally to the rectum. There is left-sided colonic diverticulosis but no focal torrey colonic inflammatory change as was seen on 01/07/2023. Bladder partially distended. Left-sided pelvic phlebolith. Uterus anteverted. Both ovaries are visual ized. No abnormal fluid collection in the pelvis or pelvic lymph adenopathy. Bones: Moderate degenerative disc disease L3-L4 and L5-S1. Facet arthropathy with grade 1 retrolisthe sis L2-L3, L3-L4, L4-L5. IMPRESSION: 1. MILD TO MODERATE CIRCUMFERENTIAL WALL THICKENING THROUGHOUT THE COLON. A FEW SEGMENTS OF MILDLY TH ICKENED JEJUNUM IN THE LEFT MID ABDOMEN. CORRELATE FOR NONSPECIFIC ENTEROCOLITIS. 2. LEFT-SIDED COLONIC DIVERTICULOSIS WITHOUT EVIDENCE OF ACUTE DIVERTICULITIS. [facility], , 03/10/2024 3:37 PM
[2024-03-10 17:19] VITALS: BP 132/71; PULSE 78; RESP 16
== END 2024-03-10 17:19 | disposition home or self-care (01) ==
LOC: EC 12:54
DX: R10.9 Unspecified abdominal pain (principal)
CPT/HCPCS: 36415; 74177; 80053; 81001; 82150; 83605; 83690; 85025; 85610; 85730; 96361; 96374; 96375; 96376; 99284

== ENCOUNTER 2024-04-22 10:05 | Day surgery (SDC) | payer OTHER ==
[2024-04-22] MEDS: IV FLUID CONTINUATION 1,000 ML IV ONE (11:02)
[2024-04-22 11:20] VITALS: TEMP 97.4
[2024-04-22] MEDS: LACTATED RINGERS 1,000 ML IV SCH (11:20)
[2024-04-22 11:23] LABS: Glucose,Whole Blood 91 mg/dL (70-110)
[2024-04-22] MEDS ORDERED: LIDOCAINE 1% INJ 10MG/ML (20 ML MDV) ONE (12:17)
[2024-04-22] MEDS ORDERED: PROPOFOL 10 MG/ML 20 ML VIAL IV ONE (12:17)
--- NOTE | 2024-04-22 12:35 | P.PCN ---
Date of Procedure: 04/22/24 Procedure(s) Performed: BRIEF HISTORY: Patient is a 58-year-old pleasant white female scheduled for an elective colonoscopy as a part of evaluation of intermittent rectal bleeding. PROCEDURE PERFORMED: Colonoscopy. PREOPERATIVE DIAGNOSIS: Intermittent rectal bleeding. IV sedation per Anesthesia. PROCEDURE: After informed consent was obtained, the patient, was brought into the endoscopy unit. IV sedation was administered by Anesthesia under continuous monitoring. Digital rectal examination was normal. Initially the Olympus CF-160 flexible video colonoscope was then inserted in the rectum, gradually advanced into the cecum without any difficulty. Careful examination was performed as the scope was gradually being withdrawn. Ileocecal valve and the appendiceal orifice were visualized and appeared normal. Prep was excellent. Mucosa of the cecum, ascending colon, transverse colon, descending colon, were normal. The sigmoid colon there was a 5 mm polyp that was removed by cold snare polypectomy. Scattered sigmoid diverticulosis seen. Rest of the sigmoid colon, and rectum appeared normal. Retroflexion was performed in the rectum and grade 2 internal were seen. The patient tolerated the procedure well. IMPRESSION: 5 mm distal sigmoid colon polyp status post cold snare polypectomy Scattered sigmoid diverticulosis. Grade 2 internal hemorrhoid RECOMMENDATIONS: Findings of this examination were discussed with the patient as well as the family.. She was advised to follow-up with the biopsy results. If the biopsy reveals adenoma she can have repeat colonoscopy in 5 years. In the meantime she will be on a high-fiber diet and take fiber supplements on a regular basis and avoid straining and constipation.
[2024-04-22 12:58] VITALS: BP 114/68; PULSE 73; RESP 18
== END 2024-04-22 13:29 | disposition home or self-care (01) ==
LOC: ORWHC2ENDO 10:05
PROVIDERS: ATTEND Internal Medicine Gastroenterology
DX: K63.5 Polyp of colon (principal); K57.31 Diverticulosis of large intestine without perforation or abscess with bleeding; K64.1 Second degree hemorrhoids
CPT/HCPCS: 88305; 45385; J2003; J2704

== ENCOUNTER 2024-10-23 13:44 | Emergency (ER) | payer OTHER ==
[2024-10-23] MEDS: SODIUM CHLORIDE 0.9% 1,000 ML IV ONE (15:53)
[2024-10-23] MEDS: KETOROLAC 15 MG/ML 1 ML VIAL IVP STA (15:54)
[2024-10-23] MEDS: ONDANSETRON 4 MG/2 ML VIAL IVP STA (15:54)
[2024-10-23 16:01] LABS: Basophils # (A) 0.02 10*3/uL (0.00-0.10); Basophils % (A) 0.2 %; Eosinophils % (A) 4.3 %; HCT 40.2 % (37.2-46.3); HGB 14.2 g/dL (12.0-15.0); Lymphocytes # (A) 1.58 10*3/uL (0.90-5.00); Lymphocytes % (A) 16.8 %; MCH 31.6 pg (27.0-32.0); MCHC 35.3 g/dL (32.0-37.0); MCV 89.5 fL (80.0-97.0); Mean Platelet Volume 9.1 fL (9.5-12.2); Monocytes # (A) 0.81 10*3/uL (0.20-1.00); Monocytes % (A) 8.6 %; Neutrophils # (A) 6.54 10*3/uL (1.80-7.70); Neutrophils % (A) 69.7 %; Platelet Count 286 10*3/uL (140-440); RBC 4.49 10*6/uL (4.10-5.20); RDW 11.9 % (11.5-14.5); WBC 9.39 10*3/uL (4.50-10.00)
[2024-10-23 16:15] LABS: ALT 12 U/L (4-34); AST 16 U/L (14-36); African American GFR (CKD) >90 (>60 ml/min/1.73 sqM); Albumin 4.5 g/dL (3.5-5.0); Alkaline Phosphatase 93 U/L (38-126); Amylase 43 U/L (30-110); Anion Gap 12 mmol/L; Blood Urea Nitrogen 10 mg/dL (7-17); Calcium 9.8 mg/dL (8.4-10.2); Carbon Dioxide 26 mmol/L (22-30); Chloride 102 mmol/L (98-107); Glucose 98 mg/dL (74-99); Lipase 24 U/L (23-300); Non-African American GFR(CKD) 86 (>60 ml/min/1.73 sqM); Potassium 4.4 mmol/L (3.5-5.1); Sodium 140 mmol/L (137-145); Total Bilirubin 1.1 mg/dL (0.2-1.3); Total Protein 7.3 g/dL (6.3-8.2)
[2024-10-23 16:20] LABS: Appearance,Urine Cloudy (Clear); Bacteria,Urine Many /hpf; Bilirubin,Urine Negative (Negative); Blood,Urine Trace (Negative); Color,Urine Colorless; Glucose,Urine (UA) Negative (Negative); Ketones,Urine Negative (Negative); Leukocyte Esterase,Urine Large (Negative); Nitrite,Urine Negative (Negative); Protein,Urine Negative (Negative); RBC,Urine 2 /hpf (0-5); Specific Gravity,Urine 1.006 (1.001-1.035); Squamous Epithelial Cell,Urine 1 /hpf (0-4); Urobilinogen,Urine <2.0 mg/dL (<2.0); WBC,Urine 45 /hpf (0-5)
[2024-10-23] MEDS: MORPHINE SULFATE 4 MG/ML SYRINGE IVP STA (17:32)
--- NOTE | 2024-10-23 19:08 | CT ---
EXAMINATION TYPE: CT abdomen pelvis wo con DATE OF EXAM: 10/23/2024 6:59 PM COMPARISON: None. CLINICAL INDICATION: Female, 59 years old with history of left flank pain. eval for stone, Pt states left sided abd pain radiating to her back for last 2 days. TECHNIQUE: Axial images with sagittal coronal reformats. Examination of the solid and hollow viscera is limited given the lack of contrast. CT DLP: 909.3 mGycm, Automated exposure control for dose reduction was used. FINDINGS: LUNG BASES: No evidence for nodule. No evidence for infiltrate. LIVER/GB: The gallbladder is unremarkable. No space-occupying hepatic lesion. PANCREAS: No pancreatic mass identified. No inflammatory process seen. SPLEEN: No evidence for splenomegaly. No intrasplenic lesions seen. ADRENALS: No adrenal nodules identified. No evidence for thickening. KIDNEYS: No evidence for renal mass. No nephrolithiasis. No hydronephrosis. BOWEL: Appendix has a normal appearance. Inflammatory changes involving the distal descending colon/p roximal sigmoid colonic junction with wall thickening and pericolonic fat stranding compatible with u ncomplicated acute diverticulitis. No evidence for perforation or abscess at this time. Lymph nodes: No evidence for adenopathy greater than 1 cm. Abdominal aorta: Atheromatous changes seen. No evidence for aneurysm. Genital organs: No significant abnormality. Other: No significant abnormality. IMPRESSION: 1.Inflammatory changes involving the distal descending colon/proximal sigmoid colonic junction with w all thickening and pericolonic fat stranding compatible with uncomplicated acute diverticulitis. No e vidence for perforation or abscess at this time. [facility], , 10/23/2024 7:05 PM
--- NOTE | 2024-10-23 19:12 | ED ---
General Adult HPI - General Chief complaint: Abdominal Pain Stated complaint: L lower back pain Time Seen by Provider: 10/23/24 15:30 Source: patient, RN notes reviewed, old records reviewed Mode of arrival: ambulatory Limitations: no limitations - History of Present Illness Initial comments: Patient is a 59-year-old female presents Emergency Department complaining of dysuria, left lower quadrant abdominal pain, suprapubic abdominal pain. Denies any significant nausea or vomiting. Denies any diarrhea or change in stooling. Denies any chest pain or shortness of breath. Denies any fevers. States it feels like either her diverticulitis or possible UTI. She does have a history of both. Denies any blood in her urine. Denies any vaginal discharge or bleeding. Denies any history of kidney stones. States pain has been present for the last 2 days. Pain radiates around her left flank towards her back. Presents for further evaluation at this time. - Related Data Previous Rx's Medication Instructions Recorded Amoxic-Pot Clav 875-125Mg 1 tab PO BID 10 Days #20 tab 10/23/24 [Augmentin 875-125] Allergies Allergy/AdvReac Type Severity Reaction Status Date / Time No Known Allergies Allergy Verified 10/23/24 13:48 Review of Systems ROS Statement: Those systems with pertinent positive or pertinent negative responses have been documented in the HPI. Review of Systems: CONST: Denies fever EYES: Denies blurry vision ENT: Denies nasal congestion C/V: Denies Chest pain RESP: Denies shortness of breath GI: Endorses abdominal pain : Denies dysuria SKIN: Denies rash. MSK: Denies joint pain. NEURO: Denies headache ROS Other: All systems not noted in ROS Statement are negative. Past Medical History Past Medical History: Osteoarthritis (OA) Additional Past Medical History / Comment(s): hx DIVERTICULITIS. HAS ENLARGED PANCREAS. hx kidney stones. herniated ulcer. vertigo History of Any Multi-Drug Resistant Organisms: None Reported Past Surgical History: Tubal Ligation Additional Past Surgical History / Comment(s): COLONOSCOPY Past Anesthesia/Blood Transfusion Reactions: No Reported Reaction Past Psychological History: No Psychological Hx Reported Smoking Status: Never smoker, Second hand smoke exposure Past Alcohol Use History: None Reported Past Drug Use History: None Reported - Past Family History Mother Family Medical History: No Reported History General Exam - General Exam Comments Initial Comments: General: Appears in no acute distress. HEAD: Normal with no signs of head trauma. EYES: EOMI ENT: Hearing grossly intact, normal oropharynx. RESPIRATORY: Clear breath sounds bilaterally. No wheezes, rales, or rhonchi. C/V: Regular rate and rhythm. S1 and S2 auscultated, peripheral pulses 2+ and intact throughout ABD: Abdomen soft, nondistended. Tender to palpation on the left lower quadrant. No guarding or rebound tenderness. No peritoneal signs. Does seem to have some tenderness around the left flank as well. No CVA tenderness to percussion. EXT: Normal range of motion, no obvious deformity SKIN: No rashes or lesions observed on exposed skin. NEURO: Alert and oriented x 4. Limitations: no limitations Course Vital Signs 10/23/24 10/23/24 13:46 20:01 Temperature 97.8 F 98.3 F Pulse Rate 91 69 Respiratory 20 16 Rate Blood Pressure 114/77 123/77 O2 Sat by Pulse 99 98 Oximetry Medical Decision Making - Medical Decision Making Was pt. sent in by a medical professional or institution (, PA, EMPLOYEE WELLNESS/FITNESS COORDINATOR, urgent care, hospital, or snf...) When possible be specific @ -No Did you speak to anyone other than the patient for history (EMS, parent, family, police, friend...)? What history was obtained from this source @ -No Did you review nursing and triage notes (agree or disagree)? Why? @ -I reviewed and agree with nursing and triage notes Were old charts reviewed (outside hosp., previous admission, EMS record, old EKG, old radiological studies, urgent care reports/EKG's, snf records)? Report findings @ -No old charts were reviewed Differential Diagnosis (chest pain, altered mental status, abdominal pain women, abdominal pain men, vaginal bleeding, weakness, fever, dyspnea, syncope, headache, dizziness, GI bleed, back pain, seizure, CVA, palpatations, mental health, musculoskeletal)? @ -Differential Abdominal Pain Women: Appendicitis, Cholecystitis, diverticulosis, ischemic bowel, pancreatitis, hepatitis, UTI, gastroenteritis, AAA, incarcerated hernia, bowel obstruction, constipation, inflammatory bowel, hepatitis, peptic ulcer disease, splenic infarction, perforated viscus, vulvitis, ovarian torsion, PID, kidney stone, placenta abruption, this is not meant to be an all-inclusive list EKG interpreted by me (3pts min.). @ -As above X-rays interpreted by me (1pt min.). @ -None done CT interpreted by me (1pt min.). @ -CT without contrast reveals no evidence of ureterolithiasis but patient does have uncomplicated acute diverticulitis. U/S interpreted by me (1pt. min.). @ -None done What testing was considered but not performed or refused? (CT, X-rays, U/S, labs)? Why? @ -None What meds were considered but not given or refused? Why? @ -None Did you discuss the management of the patient with other professionals (professionals i.e. , PA, EMPLOYEE WELLNESS/FITNESS COORDINATOR, lab, RT, psych nurse, social security assessor, television installer helper, teacher, first officer and flight instructor, case resource manager)? Give summary @ -No Was smoking cessation discussed for >3mins.? @ -No Was critical care preformed (if so, how long)? @ -No Were there social determinants of health that impacted care today? How? (Homelessness, low income, unemployed, alcoholism, drug addiction, transportation, low edu. Level, literacy, decrease access to med. care, residential, rehab)? @ -No Was there de-escalation of care discussed even if they declined (Discuss DNR or withdrawal of care, Hospice)? DNR status @ -No What co-morbidities impacted this encounter? (DM, HTN, Smoking, COPD, CAD, Cancer, CVA, ARF, Chemo, Hep., AIDS, mental health diagnosis, sleep apnea, morbid obesity)? @ -UTI, diverticulitis Was patient admitted / discharged? Hospital course, mention meds given and route , prescriptions, significant lab abnormalities, going to OR and other pertinent info. @ -Patient presents emergency department complaining of left lower quadrant abdominal pain. We will obtain abdominal labs as well as urinalysis. Discussed imaging and we will wait for laboratory studies to return for us before choosing to do imaging or not. She was in agreement this plan. Given IV analgesia medications as well as fluids and nausea meds. Vitals within acceptable limits. Laboratory studies are remarkable for findings consistent with UTI. Patient has large amount of leukocyte esterase, WBCs. Urine culture sent. Bacteria many. There is some blood in the urine. Remainder the labs unremarkable. I discussed the results with the patient. I did offer CT imaging at this time we did choose to do without contrast as there is more concern for possible ureterolithiasis based on the blood in the urine and then diverticulitis. She was in agreement this plan. CT imaging did return remarkable for no ureterolithiasis but rather diverticulitis in addition of the UTI. After the patient. She expressed understanding. She was to be started on antibiotics and will treat both diverticulitis and UTI. Strict return precautions discussed. Recommend follow-up with her PCP. Strict return precautions discussed. I will provide the patient with a prescription for Augmentin. I instructed the patient to follow up with their PCP in the next 1-3 days.. I explained that the patient should return to the emergency department if they experience any worsening symptoms. Strict return precautions were discussed with the patient. The patient expressed understanding of these instructions. I answered all questions that the patient had. The patient was discharged home in good condition with their prescriptions and follow up information. Undiagnosed new problem with uncertain prognosis? @ -No Drug Therapy requiring intensive monitoring for toxicity (Heparin, Nitro, Insulin, Cardizem)? @ -No Were any procedures done? @ -No Diagnosis/symptom? @ -UTI, diverticulitis Acute, or Chronic, or Acute on Chronic? @ -Acute Uncomplicated (without systemic symptoms) or Complicated (systemic symptoms)? @ -Uncomplicated Side effects of treatment? @ -No Exacerbation, Progression, or Severe Exacerbation? @ -No Poses a threat to life or bodily function? How? (Chest pain, USA, VT, pneumonia, PE, COPD, DKA, ARF, appy, cholecystitis, CVA, Diverticulitis, Homicidal, Suicidal, threat to staff... and all critical care pts) @ -Unlikely at this time - Lab Data Result diagrams: 10/23/24 15:51 10/23/24 15:51 Lab Results 10/23/24 10/23/24 10/23/24 Range/Units 15:51 15:51 15:51 WBC 9.39 (4.50-10.00) 10*3/uL RBC 4.49 (4.10-5.20) 10*6/uL Hgb 14.2 (12.0-15.0) g/dL Hct 40.2 (37.2-46.3) % MCV 89.5 (80.0-97.0) fL MCH 31.6 (27.0-32.0) pg MCHC 35.3 (32.0-37.0) g/dL Plt Count 286 (140-440) 10*3/uL MPV 9.1 L (9.5-12.2) fL Immature Gran % (Auto) 0.4 % Neutrophils % 69.7 % Lymphocytes % 16.8 % Monocytes % 8.6 % Eosinophils % 4.3 % Basophils % 0.2 % Immature Gran # 0.04 (0.00-0.04) 10*3/uL Neutrophils # 6.54 (1.80-7.70) 10*3/uL Lymphocytes # 1.58 (0.90-5.00) 10*3/uL Monocytes # 0.81 (0.20-1.00) 10*3/uL Eosinophils # 0.40 H (0.04-0.35) 10*3/uL Basophils # 0.02 (0.00-0.10) 10*3/uL Sodium 140 (137-145) mmol/L Potassium 4.4 (3.5-5.1) mmol/L Chloride 102 (98-107) mmol/L Carbon Dioxide 26 (22-30) mmol/L Anion Gap 12 mmol/L BUN 10 (7-17) mg/dL Creatinine 0.76 (0.52-1.04) mg/dL Est GFR (CKD-EPI)AfAm >90 (>60 ml/min/1.73 sqM) Est GFR (CKD-EPI)NonAf 86 (>60 ml/min/1.73 sqM) Glucose 98 (74-99) mg/dL Plasma Lactic Acid Sukh (0.7-2.0) mmol/L Calcium 9.8 (8.4-10.2) mg/dL Total Bilirubin 1.1 (0.2-1.3) mg/dL AST 16 (14-36) U/L ALT 12 (4-34) U/L Alkaline Phosphatase 93 (38-126) U/L Total Protein 7.3 (6.3-8.2) g/dL Albumin 4.5 (3.5-5.0) g/dL Amylase 43 (30-110) U/L Lipase 24 (23-300) U/L Urine Color Colorless Urine Appearance Cloudy H (Clear) Urine pH 6.0 (5.0-8.0) Ur Specific [place] 1.006 (1.001-1.035) Urine Protein Negative (Negative) Urine Glucose (UA) Negative (Negative) Urine Ketones Negative (Negative) Urine Blood Trace H (Negative) Urine Nitrite Negative (Negative) Urine Bilirubin Negative (Negative) Urine Urobilinogen <2.0 (<2.0) mg/dL Ur Leukocyte Esterase Large H (Negative) Urine RBC 2 (0-5) /hpf Urine WBC 45 H (0-5) /hpf Ur Squamous Epith Cells 1 (0-4) /hpf Urine Bacteria Many H (None) /hpf 10/23/24 Range/Units 15:51 WBC (4.50-10.00) 10*3/uL RBC (4.10-5.20) 10*6/uL Hgb (12.0-15.0) g/dL Hct (37.2-46.3) % MCV (80.0-97.0) fL MCH (27.0-32.0) pg MCHC (32.0-37.0) g/dL Plt Count (140-440) 10*3/uL MPV (9.5-12.2) fL Immature Gran % (Auto) % Neutrophils % % Lymphocytes % % Monocytes % % Eosinophils % % Basophils % % Immature Gran # (0.00-0.04) 10*3/uL Neutrophils # (1.80-7.70) 10*3/uL Lymphocytes # (0.90-5.00) 10*3/uL Monocytes # (0.20-1.00) 10*3/uL Eosinophils # (0.04-0.35) 10*3/uL Basophils # (0.00-0.10) 10*3/uL Sodium (137-145) mmol/L Potassium (3.5-5.1) mmol/L Chloride (98-107) mmol/L Carbon Dioxide (22-30) mmol/L Anion Gap mmol/L BUN (7-17) mg/dL Creatinine (0.52-1.04) mg/dL Est GFR (CKD-EPI)AfAm (>60 ml/min/1.73 sqM) Est GFR (CKD-EPI)NonAf (>60 ml/min/1.73 sqM) Glucose (74-99) mg/dL Plasma Lactic Acid Suhk 1.2 (0.7-2.0) mmol/L Calcium (8.4-10.2) mg/dL Total Bilirubin (0.2-1.3) mg/dL AST (14-36) U/L ALT (4-34) U/L Alkaline Phosphatase (38-126) U/L Total Protein (6.3-8.2) g/dL Albumin (3.5-5.0) g/dL Amylase (30-110) U/L Lipase (23-300) U/L Urine Color Urine Appearance (Clear) Urine pH (5.0-8.0) Ur Specific [place] (1.001-1.035) Urine Protein (Negative) Urine Glucose (UA) (Negative) Urine Ketones (Negative) Urine Blood (Negative) Urine Nitrite (Negative) Urine Bilirubin (Negative) Urine Urobilinogen (<2.0) mg/dL Ur Leukocyte Esterase (Negative) Urine RBC (0-5) /hpf Urine WBC (0-5) /hpf Ur Squamous Epith Cells (0-4) /hpf Urine Bacteria (None) /hpf Disposition Clinical Impression: UTI (urinary tract infection), Diverticulitis Disposition: HOME SELF-CARE Condition: Good Instructions (If sedation given, give patient instructions): Diverticulitis (ED), Full Liquid Diet (DC) Prescriptions: Amoxic-Pot Clav 875-125Mg [Augmentin 875-125] 1 tab PO BID 10 Days #20 tab Is patient prescribed a controlled substance at d/c from ED?: No Referrals: Maddison Martinez MD [Primary Care Provider] - 1-2 days Time of Disposition: 19:12
[2024-10-23] MEDS: ACET/COD 300 MG/30 MG STARTER PACK 6 TAB BTL PO STA (19:57)
[2024-10-23] MEDS: AMOXIC-POT CLAV 875-125MG 1 EACH TAB PO STA (19:57)
[2024-10-23 20:02] VITALS: BP 123/77; PULSE 69; RESP 16; TEMP 98.3
== END 2024-10-23 20:02 | disposition home or self-care (01) ==
LOC: EC 13:44
DX: N39.0 Urinary tract infection, site not specified (principal); K57.32 Diverticulitis of large intestine without perforation or abscess without bleeding; Z77.22 Contact with and (suspected) exposure to environmental tobacco smoke (acute) (chronic)
CPT/HCPCS: 36415; 80053; 82150; 83605; 83690; 85025; 81001; 87086; 74176; 99284; 96374; 96375; 96361; J2270; J2405; J1885